=== PATIENT | female | born 1975 | race African-American/Black ===

== ENCOUNTER 2016-10-19 02:55 | Emergency (ER) | payer OTHER ==
[~2016-10-19] VITALS: Ht 175.3 cm; Wt 66.0 kg
[~2016-10-19 02:55] MED LIST: ACID1GRA2 PO; AMPH15TA2 PO; BACL20TA PO; CEPH-368 PO; CHOL500022 PO; DEXA4VIA PO; DIME240C PO; GLIM1TAB PO; HYDR-3138 PO; INSU100I28 SQ-INSULIN; IRON1TAB37 PO; LAMO1000 PO; LISI-424 PO; LORA1TAB PO; MAGN400T26 PO; METF500T4 PO; METR500T PO; ONDA-39 PO; ONDA4TAB7 PO; OXYC-229 PO; OXYC1TAB8 PO
[2016-10-19] MEDS ORDERED: OXYcodone/APAP 10/325MG TABLET ONE (03:58)
[2016-10-19] MEDS ORDERED: OXYcodone/APAP 10/325MG TABLET PO ONE (04:00)
[2016-10-19] MEDS ORDERED: INSU100I28 SQ (04:27)
[2016-10-19] MEDS ORDERED: LORA-446 PO (04:27)
[2016-10-19] MEDS ORDERED: TRAM50TA2 PO (04:27)
[2016-10-19] MEDS ORDERED: DICY10CA53 PO (04:27)
[2016-10-19] MEDS ORDERED: FAMO-79 PO (04:27)
[2016-10-19] MEDS ORDERED: [UNRECOGNIZED DRUG - CODE] IM (04:27)
[2016-10-19] MEDS ORDERED: MIRT7.5T8 PO (04:27)
[2016-10-19 05:00] LABS: HEMOGLOBIN 13.3 g/dL (11.7-16.4)
[2016-10-19 05:10] LABS: BLOOD UREA NITROGEN 21 mg/dL (7-18)
[2016-10-19] MEDS ORDERED: PHENYTOIN SODIUM 1,000 MG in SODIUM CHLORIDE 0.9% 80 ML IV ONE (05:30)
[2016-10-19] MEDS ORDERED: FILTER 0.22 MICRON IV ONE (06:00)
[2016-10-19 07:16] VITALS: BP 117/60
== END 2016-10-19 07:19 | disposition home or self-care (01) ==
LOC: ED 06:38
DX: R56.9 Unspecified convulsions (principal); E11.9 Type 2 diabetes mellitus without complications; Z88.1 Allergy status to other antibiotic agents; F17.210 Nicotine dependence, cigarettes, uncomplicated
CPT/HCPCS: 36415; 80048; 80185; 82040; 85025; 93005; 96365; 99285; J1165

== ENCOUNTER 2016-10-21 13:53 | Emergency (ER) | payer OTHER ==
[~2016-10-21] VITALS: Ht 175.3 cm; Wt 63.0 kg
[~2016-10-21 13:53] MED LIST changes: +DICY10CA53 PO; +FAMO-79 PO; +INSU100I28 SQ; +LORA-446 PO; +MIRT7.5T8 PO; +TRAM50TA2 PO; +[UNRECOGNIZED DRUG - CODE] IM
[2016-10-21 14:29] LABS: DAU SCREEN DISCLAIMER
[2016-10-21] MEDS ORDERED: SODIUM CHLORIDE FLUSH 10ML SYR IVF ONE (14:30)
[2016-10-21 14:52] LABS: BLOOD UREA NITROGEN 17 mg/dL (7-18)
[2016-10-21 14:55] LABS: HEMOGLOBIN 14.6 g/dL (11.7-16.4)
[2016-10-21 14:56] LABS: ASPARTATE AMINO TRANSFERASE 12 U/L (15-37)
[2016-10-21] MEDS ORDERED: FILTER 0.22 MICRON IV ONE (15:30)
[2016-10-21] MEDS ORDERED: PHENYTOIN SODIUM 1,000 MG in SODIUM CHLORIDE 0.9% 80 ML IV ONE (15:30)
[2016-10-21 17:26] VITALS: BP 127/77
== END 2016-10-21 17:30 | disposition home or self-care (01) ==
LOC: ED 14:35
DX: G40.409 Other generalized epilepsy and epileptic syndromes, not intractable, without status epilepticus (principal); F17.200 Nicotine dependence, unspecified, uncomplicated; E11.9 Type 2 diabetes mellitus without complications; C53.9 Malignant neoplasm of cervix uteri, unspecified; Z98.890 Other specified postprocedural states; Z87.440 Personal history of urinary (tract) infections
CPT/HCPCS: 36415; 80053; 80185; 80307; 83735; 85025; 96365; 99284; J1165

== ENCOUNTER 2016-10-24 16:01 | Emergency (ER) | payer OTHER ==
[~2016-10-24] VITALS: Ht 175.3 cm; Wt 63.9 kg
[2016-10-24] MEDS ORDERED: ONDANSETRON 2MG/ML, 2ML IVPush ONE (16:30)
[2016-10-24] MEDS ORDERED: SODIUM CHLORIDE 0.9% 1,000ML IVBOLUS ONE (16:30)
[2016-10-24] MEDS ORDERED: MORPHINE SULFATE 4 MG/ML, 1ML IVPush PRN (16:30)
[2016-10-24 16:55] LABS: ASPARTATE AMINO TRANSFERASE 12 U/L (15-37); BLOOD UREA NITROGEN 14 mg/dL (7-18)
[2016-10-24 16:56] LABS: HEMOGLOBIN 13.7 g/dL (11.7-16.4)
[2016-10-24] MEDS ORDERED: ONDANSETRON 2MG/ML, 2ML ONE (17:44)
[2016-10-24] MEDS ORDERED: MORPHINE SULFATE 4 MG/ML, 1ML ONE (17:44)
[2016-10-24 17:54] LABS: PATH.CAST-FLAG NOT PRESENT; SPERM-FLAG NOT PRESENT; SRC-FLAG NOT PRESENT; XTAL-FLAG NOT PRESENT; YLC-FLAG NOT PRESENT
[2016-10-24 19:35] VITALS: BP 136/74
== END 2016-10-24 19:38 | disposition home or self-care (01) ==
LOC: ED 18:40
DX: A04.9 Bacterial intestinal infection, unspecified (principal); K92.1 Melena; E11.9 Type 2 diabetes mellitus without complications; Z85.41 Personal history of malignant neoplasm of cervix uteri; G40.909 Epilepsy, unspecified, not intractable, without status epilepticus
CPT/HCPCS: 36415; 80053; 81001; 83605; 85025; 87324; 89055; 96361; 96374; 96375; 99284; J2405; J7030

== ENCOUNTER 2016-11-06 19:32 | Inpatient (IN) | payer OTHER ==
[~2016-11-06] VITALS: Ht 175.3 cm; Wt 61.9 kg
[2016-11-06] MEDS ORDERED: SODIUM CHLORIDE 0.9% 1,000 ML IV ONE ×2 (20:06→22:47)
[2016-11-06] MEDS ORDERED: HYDROmorphone 1 MG/ML, 1ML ONE ×2 (20:10→21:05)
[2016-11-06] MEDS ORDERED: ONDANSETRON 2MG/ML, 2ML ONE (20:10)
[2016-11-06] MEDS: HYDROmorphone 1 MG/ML, 1ML IVPush PRN ×2 (20:15→21:07)
[2016-11-06 20:21] LABS: HEMOGLOBIN 15.1 g/dL (11.7-16.4)
[2016-11-06] MEDS ORDERED: ONDANSETRON 2MG/ML, 2ML IVPush ONE (20:30)
[2016-11-06] MEDS ORDERED: SODIUM CHLORIDE FLUSH 10ML SYR IVF ONE (20:30)
[2016-11-06] MEDS ORDERED: SODIUM CHLORIDE 0.9% 1,000ML IVBOLUS ONE (20:30)
[2016-11-06 20:31] LABS: BLOOD UREA NITROGEN 16 mg/dL (7-18)
[2016-11-06 20:34] LABS: ASPARTATE AMINO TRANSFERASE 6 U/L (15-37)
[2016-11-06] MEDS ORDERED: OMNIPAQUE 350 MG/ML, 100ML BOTTLE ONE (21:23)
[2016-11-06] MEDS ORDERED: HYDROmorphone 1 MG/ML, 1ML IVPush PRN (23:00)
[2016-11-06] MEDS ORDERED: SODIUM CHLORIDE FLUSH 10ML SYR IVF PRN (23:00)
[2016-11-06] MEDS ORDERED: ONDANSETRON 2MG/ML, 2ML IVPush PRN (23:00)
[2016-11-06] MEDS ORDERED: TRAZODONE 50MG TABLET PO PRN (23:30)
[2016-11-06] MEDS ORDERED: BISACODYL 10 MG SUPP PR PRN (23:30)
[2016-11-06] MEDS ORDERED: LABETALOL 5MG/ML, 20ML IV PRN (23:30)
[2016-11-06] MEDS ORDERED: POLYETHYLENE GLYCOL 17 GM PACKET PO PRN (23:30)
[2016-11-06] MEDS ORDERED: DOCUSATE 100 MG CAPSULE PO PRN (23:30)
[2016-11-06] MEDS ORDERED: ONDANSETRON 2MG/ML, 2ML IVP PRN (23:30)
[2016-11-06] MEDS ORDERED: ACETAMINOPHEN 325 MG TABLET PO PRN (23:30)
[2016-11-07] MEDS ORDERED: LORazepam 1MG TABLET PO PRN
[2016-11-07 00:08] VITALS: BP 133/82
[2016-11-07] MEDS: MORPHINE SULFATE 4 MG/ML, 1ML IVPush PRN ×8 (00:40→23:19)
[2016-11-07] MEDS: ENOXAPARIN 40 MG/0.4 ML SQ SCH ×2 (00:41→23:59)
[2016-11-07] MEDS: FAMOTIDINE 20 MG TABLET PO SCH ×3 (00:41→20:51)
[2016-11-07] MEDS: SODIUM CHLORIDE 0.9% 1,000 ML IV SCH ×4 (00:41→18:18)
[2016-11-07 00:49] LABS: HCG UR OBC PASS
[2016-11-07] MEDS: INSULIN DETEMIR 100 UNITS/ML, PEN SQ-INSULIN SCH ×3 (01:06→23:59)
[2016-11-07 05:58] LABS: HEMOGLOBIN 11.6 g/dL (11.7-16.4)
[2016-11-07 06:23] LABS: ASPARTATE AMINO TRANSFERASE 4 U/L (15-37); BLOOD UREA NITROGEN 10 mg/dL (7-18)
[2016-11-07 06:46] VITALS: BP 126/82
[2016-11-07] MEDS ORDERED: MAGNESIUM SULFATE PMX 2GM/50ML 50 ML IV ONE (07:30)
[2016-11-07] MEDS: CHOLECALCIFEROL 1,000 UNIT TABLET PO SCH (09:28)
[2016-11-07] MEDS: MULTIVITAMINS WITH IRON TABLET PO SCH (09:29)
[2016-11-07] MEDS: BACLOFEN 10 MG TABLET PO SCH ×3 (09:29→20:51)
[2016-11-07] MEDS: LAMOTRIGINE 25 MG TABLET PO SCH ×2 (09:30→20:51)
[2016-11-07 12:52] VITALS: BP 127/83
[2016-11-07 19:43] VITALS: BP 134/85
[2016-11-08 03:50] VITALS: BP 144/94
[2016-11-08 05:29] LABS: HEMOGLOBIN 12.9 g/dL (11.7-16.4)
[2016-11-08 05:43] LABS: ASPARTATE AMINO TRANSFERASE 9 U/L (15-37); BLOOD UREA NITROGEN 6 mg/dL (7-18)
[2016-11-08] MEDS: SODIUM CHLORIDE 0.9% 1,000 ML IV SCH (08:06)
[2016-11-08] MEDS: LAMOTRIGINE 25 MG TABLET PO SCH ×2 (08:07→20:45)
[2016-11-08] MEDS: BACLOFEN 10 MG TABLET PO SCH ×3 (08:08→20:45)
[2016-11-08] MEDS: MULTIVITAMINS WITH IRON TABLET PO SCH (08:09)
[2016-11-08] MEDS: FAMOTIDINE 20 MG TABLET PO SCH ×2 (08:09→20:45)
[2016-11-08] MEDS: CHOLECALCIFEROL 1,000 UNIT TABLET PO SCH (08:10)
[2016-11-08] MEDS: MORPHINE SULFATE 4 MG/ML, 1ML IVPush PRN ×2 (08:12→16:09)
[2016-11-08 09:12] VITALS: BP 129/89
[2016-11-08] MEDS: SUCRALFATE 1 GM/10 ML UDC PO SCH ×3 (11:00→20:45)
[2016-11-08] MEDS: INSULIN DETEMIR 100 UNITS/ML, PEN SQ-INSULIN SCH ×2 (11:33→23:10)
[2016-11-08] MEDS ORDERED: REGADENOSON 0.4 MG/5 ML SYRINGE ONE (14:05)
[2016-11-08] MEDS ORDERED: SINCALIDE (KINEVAC) 5 MCG ONE (14:09)
[2016-11-08 16:24] VITALS: BP 139/92
[2016-11-08] MEDS ORDERED: CEFTRIAXONE PMX 2GM/50ML 50 ML IV SCH (17:30)
[2016-11-08] MEDS: METRONIDAZOLE PMX 500MG/100ML 100 ML IV SCH (18:49)
[2016-11-08 18:59] VITALS: BP 122/81
[2016-11-08] MEDS: HYDROmorphone 2 MG/ML, 1ML IVPush PRN ×3 (19:04→23:09)
[2016-11-09] MEDS: SUCRALFATE 1 GM/10 ML UDC PO SCH ×3 (00:32→16:19)
[2016-11-09 01:33] VITALS: BP 108/79
[2016-11-09] MEDS: SODIUM CHLORIDE 0.9% 1,000 ML IV SCH (01:54)
[2016-11-09] MEDS: METRONIDAZOLE PMX 500MG/100ML 100 ML IV SCH ×2 (01:54→11:54)
[2016-11-09 05:02] LABS: HEMOGLOBIN 13.2 g/dL (11.7-16.4)
[2016-11-09 05:15] LABS: BLOOD UREA NITROGEN 16 mg/dL (7-18)
[2016-11-09 05:19] LABS: ASPARTATE AMINO TRANSFERASE 10 U/L (15-37)
[2016-11-09] MEDS ORDERED: BUPIVACAINE/PF-EPI 0.25% 1:200K ONE ×2 (06:27→09:17)
[2016-11-09] MEDS: HYDROmorphone 2 MG/ML, 1ML IVPush PRN (06:30)
[2016-11-09 08:10] VITALS: BP 109/76
[2016-11-09] MEDS ORDERED: FENTANYL PF 250 MCG/5ML ONE (09:05)
[2016-11-09] MEDS ORDERED: MIDAZOLAM 1 MG/ML, 2ML ONE (09:06)
[2016-11-09] MEDS ORDERED: GLYCOPYRROLATE 0.2MG/1ML ONE (09:31)
[2016-11-09] MEDS ORDERED: SUCCINYLCHOLINE 20 MG/ML, 10ML ONE (09:31)
[2016-11-09] MEDS ORDERED: NEOSTIGMINE 1 MG/ML, 10ML ONE (09:31)
[2016-11-09] MEDS ORDERED: ONDANSETRON 2MG/ML, 2ML ONE (09:31)
[2016-11-09] MEDS ORDERED: ROCURONIUM 10 MG/ML ONE (09:31)
[2016-11-09] MEDS ORDERED: PROPOFOL 10 MG/ML, 20ML ONE (09:31)
[2016-11-09] MEDS ORDERED: OXYcodone 5 MG/5 ML ORAL.SOL UDC PO PRN (10:00)
[2016-11-09] MEDS ORDERED: MEPERIDINE/PF 25MG/0.5ML IVPush PRN (10:00)
[2016-11-09] MEDS ORDERED: METOPROLOL 1 MG/ML, 5ML IV PRN (10:00)
[2016-11-09] MEDS ORDERED: hydrALAzine 20 MG/ML, 1ML IV PRN (10:00)
[2016-11-09] MEDS ORDERED: ALBUTEROL SULFATE 2.5 MG/3 ML NPPB PRN (10:00)
[2016-11-09] MEDS ORDERED: EPHEDRINE 50 MG/ML, 1ML IVPush PRN (10:00)
[2016-11-09] MEDS ORDERED: LABETALOL 5MG/ML, 20ML IV PRN (10:00)
[2016-11-09] MEDS ORDERED: PROMETHAZINE 25 MG/ML, 1ML IV PRN (10:00)
[2016-11-09] MEDS ORDERED: MIDAZOLAM 1 MG/ML, 2ML IV PRN (10:00)
[2016-11-09] MEDS ORDERED: FENTANYL PF 100 MCG/2ML IV PRN (10:00)
[2016-11-09] MEDS ORDERED: ONDANSETRON 2MG/ML, 2ML IVPush PRN (10:00)
[2016-11-09] MEDS ORDERED: HYDROmorphone 1 MG/ML, 1ML IV PRN (10:00)
[2016-11-09] MEDS ORDERED: ACETAMINOPHEN 325 MG TABLET PO PRN (10:00)
[2016-11-09] MEDS ORDERED: ACETAMINOPHEN 650 MG/20.3 ML UDC ONE (10:51)
[2016-11-09] MEDS ORDERED: FENTANYL PF 100 MCG/2ML ONE (10:51)
[2016-11-09] MEDS ORDERED: OXYcodone 5 MG/5 ML ORAL.SOL UDC ONE (10:51)
[2016-11-09] MEDS: INSULIN DETEMIR 100 UNITS/ML, PEN SQ-INSULIN SCH (12:20)
[2016-11-09] MEDS ORDERED: HYDROcodone/APAP 5/325 TABLET PO PRN (15:00)
[2016-11-09] MEDS: BACLOFEN 10 MG TABLET PO SCH ×2 (15:11→15:55)
[2016-11-09] MEDS: MULTIVITAMINS WITH IRON TABLET PO SCH (15:11)
[2016-11-09] MEDS: FAMOTIDINE 20 MG TABLET PO SCH (15:11)
[2016-11-09] MEDS: CHOLECALCIFEROL 1,000 UNIT TABLET PO SCH (15:11)
[2016-11-09] MEDS: LAMOTRIGINE 25 MG TABLET PO SCH (15:12)
[2016-11-09 15:25] VITALS: BP 132/78
[2016-11-09] MEDS ORDERED: ONDA4TAB13 SL (16:12)
[2016-11-09] MEDS ORDERED: HYDR-3138 PO (16:13)
[2016-11-09 16:30] VITALS: BP 113/73
== END 2016-11-09 17:46 | disposition home or self-care (01) | DRG 418 ==
LOC: ED 21:09 → EDIP 22:47 → 4NOR 23:45
PROVIDERS: ADMIT Internal Medicine; ATTEND Internal Medicine
PROC: 0FT44ZZ Resection of Gallbladder, Percutaneous Endoscopic Approach (ICD-10-PCS; principal; 2016-11-06)
PROC: 0T9B70Z Drainage of Bladder with Drainage Device, Via Natural or Artificial Opening (ICD-10-PCS; 2016-11-06)
DX: K82.8 Other specified diseases of gallbladder (principal); E87.1 Hypo-osmolality and hyponatremia; E87.2 Acidosis; R65.10 Systemic inflammatory response syndrome (SIRS) of non-infectious origin without acute organ dysfunction; E11.65 Type 2 diabetes mellitus with hyperglycemia; E83.52 Hypercalcemia; D72.828 Other elevated white blood cell count; G35 Multiple sclerosis; F17.210 Nicotine dependence, cigarettes, uncomplicated; G40.909 Epilepsy, unspecified, not intractable, without status epilepticus; Z82.49 Family history of ischemic heart disease and other diseases of the circulatory system; Z85.41 Personal history of malignant neoplasm of cervix uteri; Z83.3 Family history of diabetes mellitus; Z86.19 Personal history of other infectious and parasitic diseases; Z88.0 Allergy status to penicillin; Z80.9 Family history of malignant neoplasm, unspecified
CPT/HCPCS: 36415; 74177; 78227; 80053; 81001; 81025; 82010; 82962; 83036; 83605; 83690; 83735; 84439; 84443; 85025; 85610; 85730; 87040; 88304; 93005; 96361; 96374; 96375; 96376; J0696; J1170; J1650; J2250; J2405; J2704; J2710; J2785; J3010; J3490; Q9967; A9537; C9898; J0330; J1815; J2805; J3475; J7030

== ENCOUNTER 2016-11-24 23:24 | Inpatient (IN) | payer OTHER ==
[~2016-11-24] VITALS: Ht 175.3 cm; Wt 63.0 kg
[~2016-11-24 23:24] MED LIST changes: +ONDA4TAB13 SL
[2016-11-24] MEDS ORDERED: OMNIPAQUE 350 MG/ML, 100ML BOTTLE ONE (23:50)
[2016-11-25] MEDS ORDERED: SODIUM CHLORIDE 0.9% 1,000ML IVBOLUS ONE
[2016-11-25] MEDS ORDERED: ONDANSETRON 2MG/ML, 2ML IVPush ONE
[2016-11-25] MEDS ORDERED: SODIUM CHLORIDE FLUSH 10ML SYR IVF ONE
[2016-11-25] MEDS ORDERED: ONDANSETRON 2MG/ML, 2ML ONE (00:14)
[2016-11-25] MEDS ORDERED: MORPHINE SULFATE 4 MG/ML, 1ML ONE ×2 (00:14→01:57)
[2016-11-25] MEDS: MORPHINE SULFATE 4 MG/ML, 1ML IVPush PRN ×7 (00:20→22:03)
[2016-11-25 00:35] LABS: ASPARTATE AMINO TRANSFERASE 14 U/L (15-37); BLOOD UREA NITROGEN 17 mg/dL (7-18)
[2016-11-25 02:20] VITALS: BP 119/81
[2016-11-25] MEDS ORDERED: DOCUSATE 100 MG CAPSULE PO PRN (02:30)
[2016-11-25] MEDS ORDERED: POLYETHYLENE GLYCOL 17 GM PACKET PO PRN (02:30)
[2016-11-25] MEDS ORDERED: BISACODYL 10 MG SUPP PR PRN (02:30)
[2016-11-25] MEDS ORDERED: ACETAMINOPHEN 325 MG TABLET PO PRN (02:30)
[2016-11-25] MEDS: HYDROcodone/APAP 5/325 TABLET PO PRN (03:19)
[2016-11-25] MEDS: ENOXAPARIN 40 MG/0.4 ML SQ SCH (03:19)
[2016-11-25] MEDS: NS + 20MEQ KCL 1,000 ML IV SCH ×2 (03:59→11:16)
[2016-11-25 08:10] VITALS: BP 120/82
[2016-11-25] MEDS: LAMOTRIGINE 25 MG TABLET PO SCH ×2 (08:22→22:03)
[2016-11-25] MEDS: BACLOFEN 10 MG TABLET PO SCH ×3 (08:22→22:04)
[2016-11-25] MEDS: INSULIN REGULAR 100 UNITS/ML, 3ML VIAL SQ-INSULIN SCH ×4 (11:00→21:00)
[2016-11-25 15:42] VITALS: BP 104/71
[2016-11-25] MEDS: ONDANSETRON 2MG/ML, 2ML IVP PRN (18:43)
[2016-11-25 19:17] VITALS: BP 112/79
[2016-11-25] MEDS: INSULIN DETEMIR 100 UNITS/ML, PEN SQ-INSULIN SCH (22:40)
[2016-11-26 02:28] VITALS: BP 130/87
[2016-11-26 03:44] LABS: ASPARTATE AMINO TRANSFERASE 115 U/L (15-37); BLOOD UREA NITROGEN 18 mg/dL (7-18)
[2016-11-26] MEDS: ENOXAPARIN 40 MG/0.4 ML SQ SCH (06:42)
[2016-11-26] MEDS: MORPHINE SULFATE 4 MG/ML, 1ML IVPush PRN ×5 (06:43→21:31)
[2016-11-26 06:51] VITALS: BP 129/79
[2016-11-26] MEDS: INSULIN REGULAR 100 UNITS/ML, 3ML VIAL SQ-INSULIN SCH ×4 (07:00→20:49)
[2016-11-26] MEDS ORDERED: MAGNESIUM SULFATE PMX 4GM/100M 100 ML IV ONE (08:00)
[2016-11-26] MEDS: BACLOFEN 10 MG TABLET PO SCH ×3 (08:15→20:48)
[2016-11-26] MEDS: LAMOTRIGINE 25 MG TABLET PO SCH ×2 (08:15→20:48)
[2016-11-26 14:41] VITALS: BP 134/89
[2016-11-26] MEDS: ONDANSETRON 2MG/ML, 2ML IVP PRN (14:54)
[2016-11-26] MEDS: FAMOTIDINE 20 MG/2 ML IVPush SCH (20:47)
[2016-11-26 20:56] VITALS: BP 129/91
[2016-11-26] MEDS: INSULIN DETEMIR 100 UNITS/ML, PEN SQ-INSULIN SCH (21:00)
[2016-11-26] MEDS: METOCLOPRAMIDE 5 MG/ML, 2ML IV SCH (21:32)
[2016-11-26] MEDS: PIPERACILLIN/TAZO/PMX 3.375GM 50 ML IV SCH (21:32)
[2016-11-27] MEDS: KETOROLAC 30 MG/1 ML IV PRN (00:56)
[2016-11-27 00:59] VITALS: BP 136/84
[2016-11-27] MEDS: PIPERACILLIN/TAZO/PMX 3.375GM 50 ML IV SCH ×2 (02:53→09:00)
[2016-11-27] MEDS: INSULIN REGULAR 100 UNITS/ML, 3ML VIAL SQ-INSULIN SCH ×4 (02:53→20:50)
[2016-11-27] MEDS: METOCLOPRAMIDE 5 MG/ML, 2ML IV SCH ×4 (02:53→20:38)
[2016-11-27] MEDS: MORPHINE SULFATE 4 MG/ML, 1ML IVPush PRN ×4 (05:35→22:49)
[2016-11-27 05:42] LABS: ASPARTATE AMINO TRANSFERASE 18 U/L (15-37); BLOOD UREA NITROGEN 29 mg/dL (7-18)
[2016-11-27] MEDS: ENOXAPARIN 40 MG/0.4 ML SQ SCH (07:30)
[2016-11-27] MEDS ORDERED: BUPIVACAINE/PF-EPI 0.25% 1:200K ONE (07:44)
[2016-11-27 08:00] VITALS: BP 129/91
[2016-11-27] MEDS: BACLOFEN 10 MG TABLET PO SCH ×3 (09:00→20:47)
[2016-11-27] MEDS: FAMOTIDINE 20 MG/2 ML IVPush SCH ×2 (09:00→20:39)
[2016-11-27] MEDS: LAMOTRIGINE 25 MG TABLET PO SCH ×2 (09:00→20:47)
[2016-11-27] MEDS ORDERED: PROPOFOL 10 MG/ML, 20ML ONE (10:21)
[2016-11-27] MEDS ORDERED: SUCCINYLCHOLINE 20 MG/ML, 10ML ONE (10:21)
[2016-11-27] MEDS ORDERED: CEFAZOLIN 1,000 MG ONE (10:21)
[2016-11-27] MEDS ORDERED: ONDANSETRON 2MG/ML, 2ML ONE (10:21)
[2016-11-27] MEDS ORDERED: ROCURONIUM 10 MG/ML ONE (10:21)
[2016-11-27] MEDS ORDERED: ACETAMINOPHEN 325 MG TABLET PO PRN (11:00)
[2016-11-27] MEDS ORDERED: LABETALOL 5MG/ML, 20ML IV PRN (11:00)
[2016-11-27] MEDS ORDERED: FENTANYL PF 100 MCG/2ML IV PRN (11:00)
[2016-11-27] MEDS ORDERED: hydrALAzine 20 MG/ML, 1ML IV PRN (11:00)
[2016-11-27] MEDS ORDERED: METOCLOPRAMIDE 5 MG/ML, 2ML IV PRN (11:00)
[2016-11-27] MEDS ORDERED: OXYcodone 5 MG/5 ML ORAL.SOL UDC PO PRN (11:00)
[2016-11-27] MEDS ORDERED: ONDANSETRON 2MG/ML, 2ML IVPush PRN (11:00)
[2016-11-27] MEDS ORDERED: HYDROmorphone 2 MG/ML, 1ML ONE (12:33)
[2016-11-27] MEDS ORDERED: MEPERIDINE/PF 25MG/0.5ML ONE (12:34)
[2016-11-27] MEDS: HYDROmorphone 1 MG/ML, 1ML IV PRN ×4 (12:46→13:46)
[2016-11-27] MEDS ORDERED: MEPERIDINE/PF 25MG/0.5ML IVPush PRN (13:00)
[2016-11-27 15:06] VITALS: BP 135/91
[2016-11-27] MEDS: LACTATED RINGERS 1,000 ML IV SCH (17:30)
[2016-11-27 20:26] VITALS: BP 122/87
[2016-11-27] MEDS: INSULIN DETEMIR 100 UNITS/ML, PEN SQ-INSULIN SCH (20:50)
[2016-11-27] MEDS ORDERED: SODIUM CHLORIDE 0.9%, 500ML IVBOLUS ONE (22:00)
[2016-11-28 00:17] VITALS: BP 123/88
[2016-11-28] MEDS: MORPHINE SULFATE 4 MG/ML, 1ML IVPush PRN ×2 (02:32→06:30)
[2016-11-28] MEDS: METOCLOPRAMIDE 5 MG/ML, 2ML IV SCH ×4 (02:37→21:54)
[2016-11-28] MEDS: INSULIN REGULAR 100 UNITS/ML, 3ML VIAL SQ-INSULIN SCH ×4 (02:40→21:56)
[2016-11-28 02:58] VITALS: BP 122/84
[2016-11-28 08:02] VITALS: BP 122/76
[2016-11-28] MEDS: FAMOTIDINE 20 MG/2 ML IVPush SCH ×2 (08:13→21:54)
[2016-11-28] MEDS: ENOXAPARIN 40 MG/0.4 ML SQ SCH (08:13)
[2016-11-28] MEDS: LACTATED RINGERS 1,000 ML IV SCH ×2 (08:14→17:31)
[2016-11-28 08:42] LABS: ASPARTATE AMINO TRANSFERASE 8 U/L (15-37); BLOOD UREA NITROGEN 19 mg/dL (7-18)
[2016-11-28 09:46] LABS: DIFF TOTAL CELLS COUNTED 200 CELL DIFF; VERIFY COUNTS? YES
[2016-11-28 09:55] LABS: ANISOCYTOSIS 1+; POLYCHROMASIA 1+
[2016-11-28] MEDS: HYDROcodone/APAP 5/325 TABLET PO PRN ×2 (10:41→15:04)
[2016-11-28] MEDS: LAMOTRIGINE 25 MG TABLET PO SCH ×2 (10:41→23:06)
[2016-11-28] MEDS: BACLOFEN 10 MG TABLET PO SCH ×3 (10:42→23:06)
[2016-11-28] MEDS: KETOROLAC 30 MG/1 ML IV PRN (11:29)
[2016-11-28 13:05] VITALS: BP 116/78
[2016-11-28 20:00] VITALS: BP 109/75
[2016-11-28] MEDS: INSULIN DETEMIR 100 UNITS/ML, PEN SQ-INSULIN SCH (21:55)
[2016-11-28] MEDS: ONDANSETRON 2MG/ML, 2ML IVP PRN (22:14)
[2016-11-29 02:30] VITALS: BP 129/88
[2016-11-29] MEDS: LACTATED RINGERS 1,000 ML IV SCH ×3 (02:57→23:14)
[2016-11-29] MEDS: METOCLOPRAMIDE 5 MG/ML, 2ML IV SCH ×4 (02:58→21:52)
[2016-11-29 05:41] LABS: ASPARTATE AMINO TRANSFERASE 7 U/L (15-37); BLOOD UREA NITROGEN 21 mg/dL (7-18)
[2016-11-29] MEDS: ENOXAPARIN 40 MG/0.4 ML SQ SCH (06:48)
[2016-11-29] MEDS: ONDANSETRON 2MG/ML, 2ML IVP PRN ×2 (06:48→21:23)
[2016-11-29] MEDS: KETOROLAC 30 MG/1 ML IV PRN ×3 (07:21→21:51)
[2016-11-29] MEDS: morphine SULFATE 10 MG/ML, 1ML IVPush PRN ×5 (07:22→21:51)
[2016-11-29] MEDS: INSULIN REGULAR 100 UNITS/ML, 3ML VIAL SQ-INSULIN SCH ×4 (07:44→23:04)
[2016-11-29 08:41] VITALS: BP 120/78
[2016-11-29] MEDS: FAMOTIDINE 20 MG/2 ML IVPush SCH (09:54)
[2016-11-29] MEDS: PROCHLORPERAZINE 5 MG/ML, 2ML IV PRN (09:54)
[2016-11-29] MEDS: LAMOTRIGINE 25 MG TABLET PO SCH ×2 (12:54→23:13)
[2016-11-29] MEDS: BACLOFEN 10 MG TABLET PO SCH ×3 (12:54→21:51)
[2016-11-29 13:23] VITALS: BP 123/81
[2016-11-29] MEDS: POTASSIUM CHLORIDE 20 MEQ TAB.ER.PRT PO SCH (15:54)
[2016-11-29 20:03] VITALS: BP 126/83
[2016-11-29] MEDS: FAMOTIDINE 20 MG TABLET PO SCH (23:13)
[2016-11-29] MEDS: INSULIN DETEMIR 100 UNITS/ML, PEN SQ-INSULIN SCH (23:13)
[2016-11-30 02:35] VITALS: BP 124/79
[2016-11-30] MEDS: morphine SULFATE 10 MG/ML, 1ML IVPush PRN ×5 (03:08→21:30)
[2016-11-30] MEDS: METOCLOPRAMIDE 5 MG/ML, 2ML IV SCH ×3 (03:08→17:54)
[2016-11-30] MEDS: KETOROLAC 30 MG/1 ML IV PRN ×3 (05:05→21:36)
[2016-11-30 05:46] LABS: BLOOD UREA NITROGEN 15 mg/dL (7-18)
[2016-11-30] MEDS: INSULIN REGULAR 100 UNITS/ML, 3ML VIAL SQ-INSULIN SCH ×4 (06:35→21:50)
[2016-11-30] MEDS ORDERED: MAGNESIUM SULFATE PMX 2GM/50ML 50 ML IV ONE (07:30)
[2016-11-30 07:31] VITALS: BP 109/71
[2016-11-30] MEDS: POTASSIUM CHLORIDE 20 MEQ TAB.ER.PRT PO SCH ×2 (08:19→17:54)
[2016-11-30] MEDS: ENOXAPARIN 40 MG/0.4 ML SQ SCH (08:19)
[2016-11-30] MEDS: LAMOTRIGINE 25 MG TABLET PO SCH ×2 (08:19→21:00)
[2016-11-30] MEDS: BACLOFEN 10 MG TABLET PO SCH ×3 (08:20→21:00)
[2016-11-30] MEDS: FAMOTIDINE 20 MG TABLET PO SCH ×2 (08:20→21:00)
[2016-11-30 09:04] LABS: DIFF TOTAL CELLS COUNTED 100 CELL DIFF
[2016-11-30 09:06] LABS: VERIFY COUNTS? YES
[2016-11-30] MEDS ORDERED: MORPHINE SULFATE 4 MG/ML, 1ML ONE ×2 (10:39→15:40)
[2016-11-30] MEDS: LACTATED RINGERS 1,000 ML IV SCH (11:06)
[2016-11-30] MEDS: ONDANSETRON 2MG/ML, 2ML IVP PRN ×2 (13:18→21:30)
[2016-11-30 13:45] LABS: ASPARTATE AMINO TRANSFERASE 10 U/L (15-37); BLOOD UREA NITROGEN 14 mg/dL (7-18)
[2016-11-30 15:25] VITALS: BP 158/92
[2016-11-30] MEDS: PROCHLORPERAZINE 5 MG/ML, 2ML IV PRN ×2 (16:14→23:52)
[2016-11-30 19:22] VITALS: BP 129/88
[2016-11-30] MEDS: INSULIN DETEMIR 100 UNITS/ML, PEN SQ-INSULIN SCH (21:50)
[2016-12-01] MEDS: METOCLOPRAMIDE 5 MG/ML, 2ML IV SCH ×4 (01:32→18:00)
[2016-12-01] MEDS: morphine SULFATE 10 MG/ML, 1ML IVPush PRN ×2 (01:32→12:03)
[2016-12-01 02:38] VITALS: BP 131/66
[2016-12-01] MEDS: ONDANSETRON 2MG/ML, 2ML IVPush PRN ×3 (03:46→20:28)
[2016-12-01 05:28] LABS: BLOOD UREA NITROGEN 20 mg/dL (7-18)
[2016-12-01] MEDS: LACTATED RINGERS 1,000 ML IV SCH (06:19)
[2016-12-01 06:55] LABS: DIFF TOTAL CELLS COUNTED 200 CELL DIFF; VERIFY COUNTS? YES
[2016-12-01] MEDS: INSULIN REGULAR 100 UNITS/ML, 3ML VIAL SQ-INSULIN SCH ×4 (07:00→21:18)
[2016-12-01 07:01] LABS: ANISOCYTOSIS 1+
[2016-12-01 07:44] VITALS: BP 132/91
[2016-12-01] MEDS ORDERED: POTASSIUM CHLORIDE 40 MEQ in SODIUM CHLORIDE 0.9% 500 ML IV ONE (08:00)
[2016-12-01] MEDS: LAMOTRIGINE 25 MG TABLET PO SCH ×2 (09:00→21:00)
[2016-12-01] MEDS: FAMOTIDINE 20 MG TABLET PO SCH ×2 (09:00→21:00)
[2016-12-01] MEDS: BACLOFEN 10 MG TABLET PO SCH ×3 (09:00→21:00)
[2016-12-01] MEDS ORDERED: MORPHINE SULFATE 4 MG/ML, 1ML ONE (11:39)
[2016-12-01 13:28] VITALS: BP 123/83
[2016-12-01] MEDS ORDERED: FAMOTIDINE 20 MG/2 ML IVPush ONE (15:00)
[2016-12-01 19:05] VITALS: BP 134/88
[2016-12-01] MEDS: KETOROLAC 30 MG/1 ML IV PRN (20:46)
[2016-12-01] MEDS: INSULIN DETEMIR 100 UNITS/ML, PEN SQ-INSULIN SCH (21:17)
[2016-12-02 03:09] VITALS: BP 129/87
[2016-12-02] MEDS: METOCLOPRAMIDE 5 MG/ML, 2ML IV SCH ×4 (05:33→18:00)
[2016-12-02 05:38] LABS: BLOOD UREA NITROGEN 15 mg/dL (7-18)
[2016-12-02] MEDS ORDERED: POTASSIUM CHLORIDE 40 MEQ in SODIUM CHLORIDE 0.9% 100 ML IV ONE ×2 (06:00→20:30)
[2016-12-02] MEDS: INSULIN REGULAR 100 UNITS/ML, 3ML VIAL SQ-INSULIN SCH ×4 (07:00→20:43)
[2016-12-02 07:36] LABS: DIFF TOTAL CELLS COUNTED 100 CELL DIFF
[2016-12-02 07:39] LABS: VERIFY COUNTS? YES
[2016-12-02 08:14] VITALS: BP 125/82
[2016-12-02] MEDS ORDERED: MAGNESIUM SULFATE 2 GM in SODIUM CHLORIDE 0.9% 50 ML IV ONE (08:30)
[2016-12-02] MEDS: BACLOFEN 10 MG TABLET PO SCH ×3 (09:00→22:59)
[2016-12-02] MEDS: LAMOTRIGINE 25 MG TABLET PO SCH ×2 (09:00→22:59)
[2016-12-02] MEDS: FAMOTIDINE 20 MG TABLET PO SCH ×2 (09:00→22:59)
[2016-12-02] MEDS: LACTATED RINGERS 1,000 ML IV SCH ×2 (09:30→23:05)
[2016-12-02] MEDS: ONDANSETRON 2MG/ML, 2ML IVPush PRN ×3 (09:31→22:59)
[2016-12-02] MEDS ORDERED: MORPHINE SULFATE 4 MG/ML, 1ML ONE (11:23)
[2016-12-02] MEDS ORDERED: MAGNESIUM SULFATE PMX 2GM/50ML 50 ML IV ONE (11:30)
[2016-12-02] MEDS ORDERED: POTASSIUM CHLORIDE 40 MEQ in SODIUM CHLORIDE 0.9% 500 ML IV ONE (13:00)
[2016-12-02 14:45] VITALS: BP 126/85
[2016-12-02] MEDS: METRONIDAZOLE PMX 500MG/100ML 100 ML IV SCH ×2 (15:21→23:00)
[2016-12-02] MEDS ORDERED: HYDROmorphone 1 MG/ML, 1ML ONE (18:10)
[2016-12-02] MEDS: HYDROmorphone 1 MG/ML, 1ML IV PRN ×2 (18:12→22:58)
[2016-12-02 18:57] LABS: BLOOD UREA NITROGEN 14 mg/dL (7-18)
[2016-12-02 19:18] VITALS: BP 143/88
[2016-12-02] MEDS ORDERED: POTASSIUM CHLORIDE PMX 100 ML IV ONE (20:30)
[2016-12-02] MEDS: INSULIN DETEMIR 100 UNITS/ML, PEN SQ-INSULIN SCH (21:03)
[2016-12-03 01:05] VITALS: BP 125/84
[2016-12-03] MEDS: HYDROmorphone 1 MG/ML, 1ML IV PRN ×4 (02:47→21:03)
[2016-12-03] MEDS: ONDANSETRON 2MG/ML, 2ML IVPush PRN ×3 (04:59→21:03)
[2016-12-03 05:45] LABS: BLOOD UREA NITROGEN 14 mg/dL (7-18)
[2016-12-03] MEDS: INSULIN REGULAR 100 UNITS/ML, 3ML VIAL SQ-INSULIN SCH ×4 (07:00→20:53)
[2016-12-03] MEDS: METRONIDAZOLE PMX 500MG/100ML 100 ML IV SCH ×3 (07:45→23:31)
[2016-12-03 09:01] VITALS: BP 131/83
[2016-12-03] MEDS: FAMOTIDINE 20 MG TABLET PO SCH ×2 (09:44→21:00)
[2016-12-03] MEDS: BACLOFEN 10 MG TABLET PO SCH ×3 (09:44→21:00)
[2016-12-03] MEDS: LAMOTRIGINE 25 MG TABLET PO SCH ×2 (09:44→21:00)
[2016-12-03 10:06] LABS: BLOOD UREA NITROGEN 16 mg/dL (7-18)
[2016-12-03 10:33] LABS: DIFF TOTAL CELLS COUNTED 100 CELL DIFF
[2016-12-03 10:37] LABS: VERIFY COUNTS? YES
[2016-12-03] MEDS ORDERED: POTASSIUM CHLORIDE 40 MEQ in SODIUM CHLORIDE 0.9% 100 ML IV ONE ×2 (12:30→14:21)
[2016-12-03 15:48] VITALS: BP 124/85
[2016-12-03 16:14] LABS: BLOOD UREA NITROGEN 17 mg/dL (7-18)
[2016-12-03 19:15] VITALS: BP 120/77
[2016-12-03] MEDS: INSULIN DETEMIR 100 UNITS/ML, PEN SQ-INSULIN SCH (21:00)
[2016-12-04] MEDS ORDERED: D5%-0.9% NACL 1,000 ML IV SCH
[2016-12-04] MEDS: HYDROmorphone 1 MG/ML, 1ML IV PRN ×6 (01:17→23:12)
[2016-12-04 01:32] VITALS: BP 119/82
[2016-12-04] MEDS: INSULIN REGULAR 100 UNITS/ML, 3ML VIAL SQ-INSULIN SCH ×4 (04:04→21:09)
[2016-12-04 04:22] LABS: BLOOD UREA NITROGEN 17 mg/dL (7-18)
[2016-12-04 04:39] LABS: DIFF TOTAL CELLS COUNTED 100 CELL DIFF
[2016-12-04 06:10] LABS: VERIFY COUNTS? YES
[2016-12-04 07:03] VITALS: BP 113/78
[2016-12-04] MEDS: METRONIDAZOLE PMX 500MG/100ML 100 ML IV SCH ×3 (07:22→23:12)
[2016-12-04] MEDS ORDERED: FAMOTIDINE 20 MG/2 ML IVPush SCH (09:00)
[2016-12-04] MEDS: LAMOTRIGINE 25 MG TABLET PO SCH ×2 (09:00→21:08)
[2016-12-04] MEDS: BACLOFEN 10 MG TABLET PO SCH ×3 (09:00→21:08)
[2016-12-04] MEDS: ONDANSETRON 2MG/ML, 2ML IVPush PRN ×2 (09:45→15:48)
[2016-12-04] MEDS ORDERED: INSULIN REGULAR 100 UNITS/ML, 3ML VIAL SQ-INSULIN SCH (10:00)
[2016-12-04] MEDS ORDERED: TPN PER PHARMACY MC PRN (11:30)
[2016-12-04 14:05] VITALS: BP 131/85
[2016-12-04] MEDS ORDERED: DEXTROSE 10% 500 ML IV PRN (17:00)
[2016-12-04] MEDS ORDERED: FAT EMULSIONS IV SCH (17:00)
[2016-12-04] MEDS ORDERED: DEXTROSE 50%, 50ML SYRINGE IVPush PRN (17:00)
[2016-12-04] MEDS ORDERED: DEXTROSE 70% IV SCH (17:00)
[2016-12-04] MEDS ORDERED: [UNRECOGNIZED DRUG - OTHER] IV SCH (17:00)
[2016-12-04] MEDS ORDERED: AMINO ACID 10% IV SCH (17:00)
[2016-12-04 20:06] VITALS: BP 126/81
[2016-12-04] MEDS: DOXYCYCLINE 100MG TABLET PO SCH (21:08)
[2016-12-04] MEDS: INSULIN DETEMIR 100 UNITS/ML, PEN SQ-INSULIN SCH (21:09)
[2016-12-05 03:03] VITALS: BP 122/80
[2016-12-05] MEDS: HYDROmorphone 1 MG/ML, 1ML IV PRN ×3 (03:05→11:35)
[2016-12-05 04:37] LABS: ASPARTATE AMINO TRANSFERASE 10 U/L (15-37); BLOOD UREA NITROGEN 11 mg/dL (7-18)
[2016-12-05] MEDS: METRONIDAZOLE PMX 500MG/100ML 100 ML IV SCH ×3 (07:32→23:10)
[2016-12-05 08:00] VITALS: BP 130/79
[2016-12-05] MEDS: BACLOFEN 10 MG TABLET PO SCH ×5 (09:00→21:04)
[2016-12-05] MEDS: DOXYCYCLINE 100MG TABLET PO SCH ×2 (09:12→21:04)
[2016-12-05] MEDS: LAMOTRIGINE 25 MG TABLET PO SCH ×2 (09:13→21:05)
[2016-12-05] MEDS: INSULIN REGULAR 100 UNITS/ML, 3ML VIAL SQ-INSULIN SCH ×4 (09:14→21:06)
[2016-12-05] MEDS ORDERED: POTASSIUM CHLORIDE 40 MEQ in SODIUM CHLORIDE 0.9% 100 ML IV ONE (12:00)
[2016-12-05] MEDS ORDERED: POTASSIUM CHLORIDE 20 MEQ TAB.ER.PRT PO ONE (13:30)
[2016-12-05 14:08] VITALS: BP 128/85
[2016-12-05] MEDS: HYDROmorphone 2MG TABLET PO PRN (15:56)
[2016-12-05] MEDS ORDERED: DEXTROSE 70% IV SCH (17:00)
[2016-12-05] MEDS ORDERED: FAT EMULSIONS IV SCH (17:00)
[2016-12-05] MEDS ORDERED: AMINO ACID 10% IV SCH (17:00)
[2016-12-05] MEDS ORDERED: [UNRECOGNIZED DRUG - OTHER] IV SCH (17:00)
[2016-12-05] MEDS: ENOXAPARIN 40 MG/0.4 ML SQ SCH (17:58)
[2016-12-05] MEDS: FILTER, DISP 1.2 MICRON FOR TPN/PVN IV PRN (17:59)
[2016-12-05 20:01] VITALS: BP 134/90
[2016-12-05] MEDS: ONDANSETRON 2MG/ML, 2ML IVPush PRN (21:04)
[2016-12-05] MEDS: HYDROcodone/APAP 5/325 TABLET PO PRN (21:05)
[2016-12-05] MEDS: INSULIN DETEMIR 100 UNITS/ML, PEN SQ-INSULIN SCH (21:06)
[2016-12-06] MEDS: HYDROcodone/APAP 5/325 TABLET PO PRN ×3 (03:49→17:21)
[2016-12-06] MEDS: HYDROmorphone 2MG TABLET PO PRN ×2 (03:49→20:17)
[2016-12-06 04:00] VITALS: BP 120/78
[2016-12-06 05:01] LABS: BLOOD UREA NITROGEN 6 mg/dL (7-18)
[2016-12-06 07:25] VITALS: BP 115/77
[2016-12-06] MEDS: INSULIN REGULAR 100 UNITS/ML, 3ML VIAL SQ-INSULIN SCH ×4 (08:08→21:00)
[2016-12-06] MEDS: METRONIDAZOLE PMX 500MG/100ML 100 ML IV SCH ×3 (08:08→23:30)
[2016-12-06] MEDS: BACLOFEN 10 MG TABLET PO SCH ×3 (09:00→21:00)
[2016-12-06] MEDS: LAMOTRIGINE 25 MG TABLET PO SCH ×2 (09:00→21:00)
[2016-12-06] MEDS: DOXYCYCLINE 100MG TABLET PO SCH ×2 (09:56→21:37)
[2016-12-06] MEDS ORDERED: HYDROmorphone 1 MG/ML, 1ML IV ONE (10:00)
[2016-12-06] MEDS ORDERED: MAGNESIUM SULFATE PMX 2GM/50ML 50 ML IV ONE (13:00)
[2016-12-06 13:31] VITALS: BP 122/74
[2016-12-06] MEDS: CEFDINIR 300 MG CAPSULE PO SCH ×2 (15:24→21:49)
[2016-12-06] MEDS ORDERED: FAT EMULSIONS IV SCH (17:00)
[2016-12-06] MEDS ORDERED: AMINO ACID 10% IV SCH (17:00)
[2016-12-06] MEDS ORDERED: DEXTROSE 70% IV SCH (17:00)
[2016-12-06] MEDS ORDERED: [UNRECOGNIZED DRUG - OTHER] IV SCH (17:00)
[2016-12-06] MEDS: ENOXAPARIN 40 MG/0.4 ML SQ SCH (17:22)
[2016-12-06] MEDS: FILTER, DISP 1.2 MICRON FOR TPN/PVN IV PRN (17:22)
[2016-12-06 19:40] VITALS: BP 127/84
[2016-12-06] MEDS: INSULIN DETEMIR 100 UNITS/ML, PEN SQ-INSULIN SCH (21:46)
[2016-12-07 02:15] VITALS: BP 119/80
[2016-12-07 05:16] LABS: BLOOD UREA NITROGEN 5 mg/dL (7-18)
[2016-12-07 05:51] LABS: DIFF TOTAL CELLS COUNTED 100 CELL DIFF
[2016-12-07 05:55] LABS: VERIFY COUNTS? YES
[2016-12-07 05:57] LABS: ANISOCYTOSIS 1+
[2016-12-07] MEDS: HYDROmorphone 2MG TABLET PO PRN ×3 (06:42→20:53)
[2016-12-07] MEDS: INSULIN REGULAR 100 UNITS/ML, 3ML VIAL SQ-INSULIN SCH ×4 (07:00→20:53)
[2016-12-07 08:00] VITALS: BP 122/76
[2016-12-07] MEDS: LAMOTRIGINE 25 MG TABLET PO SCH ×2 (08:03→20:57)
[2016-12-07] MEDS: BACLOFEN 10 MG TABLET PO SCH ×3 (08:03→20:57)
[2016-12-07] MEDS: METRONIDAZOLE PMX 500MG/100ML 100 ML IV SCH ×3 (08:04→23:41)
[2016-12-07] MEDS: CEFDINIR 300 MG CAPSULE PO SCH (08:04)
[2016-12-07] MEDS: DOXYCYCLINE 100MG TABLET PO SCH (08:04)
[2016-12-07] MEDS: HYDROcodone/APAP 5/325 TABLET PO PRN ×3 (08:24→22:29)
[2016-12-07] MEDS ORDERED: CLARITHROMYCIN 500 MG TABLET PO SCH ×2 (10:00→21:00)
[2016-12-07] MEDS ORDERED: PANTOPROZOLE 40MG TABLET PO SCH (10:00)
[2016-12-07] MEDS ORDERED: AMOXICILLIN 500 MG CAPSULE PO SCH (10:00)
[2016-12-07 16:12] VITALS: BP 125/86
[2016-12-07] MEDS: ENOXAPARIN 40 MG/0.4 ML SQ SCH (16:22)
[2016-12-07 19:28] VITALS: BP 108/71
[2016-12-07] MEDS: PANTOPROZOLE 40MG TABLET PO SCH (20:53)
[2016-12-07] MEDS: CLARITHROMYCIN 500 MG TABLET PO SCH (20:53)
[2016-12-07] MEDS: AMOXICILLIN 500 MG CAPSULE PO SCH (20:53)
[2016-12-07] MEDS: INSULIN DETEMIR 100 UNITS/ML, PEN SQ-INSULIN SCH (21:03)
[2016-12-08 01:45] VITALS: BP 98/66
[2016-12-08] MEDS: HYDROmorphone 2MG TABLET PO PRN ×3 (04:02→20:26)
[2016-12-08] MEDS: INSULIN REGULAR 100 UNITS/ML, 3ML VIAL SQ-INSULIN SCH ×4 (06:34→21:00)
[2016-12-08] MEDS: BACLOFEN 10 MG TABLET PO SCH ×3 (07:43→21:00)
[2016-12-08 08:08] VITALS: BP 104/73
[2016-12-08] MEDS: METRONIDAZOLE PMX 500MG/100ML 100 ML IV SCH ×3 (08:13→23:44)
[2016-12-08] MEDS: LAMOTRIGINE 25 MG TABLET PO SCH ×2 (08:14→21:31)
[2016-12-08] MEDS: AMOXICILLIN 500 MG CAPSULE PO SCH ×2 (08:14→21:36)
[2016-12-08] MEDS: CLARITHROMYCIN 500 MG TABLET PO SCH ×2 (08:14→21:30)
[2016-12-08] MEDS: PANTOPROZOLE 40MG TABLET PO SCH ×2 (08:14→21:31)
[2016-12-08] MEDS: HYDROcodone/APAP 5/325 TABLET PO PRN ×3 (08:28→23:49)
[2016-12-08 08:46] LABS: BLOOD UREA NITROGEN 4 mg/dL (7-18)
[2016-12-08 13:51] VITALS: BP 104/76
[2016-12-08] MEDS: ENOXAPARIN 40 MG/0.4 ML SQ SCH (16:19)
[2016-12-08 19:01] VITALS: BP 112/76
[2016-12-08] MEDS: INSULIN DETEMIR 100 UNITS/ML, PEN SQ-INSULIN SCH (21:33)
[2016-12-09 02:49] VITALS: BP 101/67
[2016-12-09] MEDS: HYDROmorphone 2MG TABLET PO PRN ×3 (03:31→21:16)
[2016-12-09 05:23] LABS: ASPARTATE AMINO TRANSFERASE 7 U/L (15-37); BLOOD UREA NITROGEN 6 mg/dL (7-18)
[2016-12-09] MEDS: INSULIN REGULAR 100 UNITS/ML, 3ML VIAL SQ-INSULIN SCH ×4 (07:00→21:34)
[2016-12-09] MEDS: BACLOFEN 10 MG TABLET PO SCH ×3 (07:21→21:00)
[2016-12-09 07:27] VITALS: BP 112/78
[2016-12-09] MEDS: CLARITHROMYCIN 500 MG TABLET PO SCH ×2 (07:37→21:14)
[2016-12-09] MEDS: AMOXICILLIN 500 MG CAPSULE PO SCH ×2 (07:37→21:15)
[2016-12-09] MEDS: PANTOPROZOLE 40MG TABLET PO SCH ×2 (07:37→21:15)
[2016-12-09] MEDS: LAMOTRIGINE 25 MG TABLET PO SCH ×2 (07:38→21:15)
[2016-12-09] MEDS: METRONIDAZOLE PMX 500MG/100ML 100 ML IV SCH ×3 (07:38→23:22)
[2016-12-09 13:00] VITALS: BP 91/69
[2016-12-09] MEDS: HYDROcodone/APAP 5/325 TABLET PO PRN (13:52)
[2016-12-09] MEDS: ONDANSETRON 2MG/ML, 2ML IVPush PRN (13:52)
[2016-12-09 13:56] VITALS: BP 113/77
[2016-12-09] MEDS: ENOXAPARIN 40 MG/0.4 ML SQ SCH (17:00)
[2016-12-09] MEDS ORDERED: VANCOMYCIN PER PHARMACY MC PRN (17:30)
[2016-12-09] MEDS ORDERED: PHARMACOKINETIC MONITORING MC PRN (18:00)
[2016-12-09] MEDS: VANCOMYCIN 1,200 MG in SODIUM CHLORIDE 0.9% 250 ML IV SCH (18:31)
[2016-12-09 19:01] VITALS: BP 101/65
[2016-12-09] MEDS: INSULIN DETEMIR 100 UNITS/ML, PEN SQ-INSULIN SCH (21:33)
[2016-12-10 01:23] VITALS: BP 101/68
[2016-12-10] MEDS: HYDROcodone/APAP 5/325 TABLET PO PRN ×3 (01:45→21:36)
[2016-12-10] MEDS: HYDROmorphone 2MG TABLET PO PRN ×2 (05:02→16:06)
[2016-12-10 05:42] LABS: ASPARTATE AMINO TRANSFERASE 12 U/L (15-37); BLOOD UREA NITROGEN 7 mg/dL (7-18)
[2016-12-10] MEDS: VANCOMYCIN 1,200 MG in SODIUM CHLORIDE 0.9% 250 ML IV SCH ×2 (05:52→17:20)
[2016-12-10] MEDS: INSULIN REGULAR 100 UNITS/ML, 3ML VIAL SQ-INSULIN SCH ×4 (07:00→21:00)
[2016-12-10 07:43] VITALS: BP 107/72
[2016-12-10] MEDS: METRONIDAZOLE PMX 500MG/100ML 100 ML IV SCH ×2 (07:54→16:06)
[2016-12-10] MEDS: PANTOPROZOLE 40MG TABLET PO SCH ×2 (07:54→21:35)
[2016-12-10] MEDS: CLARITHROMYCIN 500 MG TABLET PO SCH ×2 (07:54→21:34)
[2016-12-10] MEDS: AMOXICILLIN 500 MG CAPSULE PO SCH ×2 (07:54→21:34)
[2016-12-10] MEDS: BACLOFEN 10 MG TABLET PO SCH ×3 (07:55→21:00)
[2016-12-10] MEDS: LAMOTRIGINE 25 MG TABLET PO SCH ×2 (07:55→21:35)
[2016-12-10 12:00] VITALS: BP 104/69
[2016-12-10 14:45] VITALS: BP 106/72
[2016-12-10] MEDS: ENOXAPARIN 40 MG/0.4 ML SQ SCH (16:06)
[2016-12-10 20:09] VITALS: BP 112/75
[2016-12-10] MEDS: INSULIN DETEMIR 100 UNITS/ML, PEN SQ-INSULIN SCH (21:48)
[2016-12-11] MEDS: METRONIDAZOLE PMX 500MG/100ML 100 ML IV SCH ×4 (00:40→23:24)
[2016-12-11 04:34] VITALS: BP 114/75
[2016-12-11 05:37] LABS: ASPARTATE AMINO TRANSFERASE 5 U/L (15-37); BLOOD UREA NITROGEN 8 mg/dL (7-18)
[2016-12-11] MEDS: HYDROmorphone 2MG TABLET PO PRN (06:04)
[2016-12-11] MEDS: VANCOMYCIN 1,200 MG in SODIUM CHLORIDE 0.9% 250 ML IV SCH (06:16)
[2016-12-11] MEDS: INSULIN REGULAR 100 UNITS/ML, 3ML VIAL SQ-INSULIN SCH ×4 (07:00→21:00)
[2016-12-11] MEDS ORDERED: SODIUM PHOSPHATE 4 MEQ/ML IV SCH (08:00)
[2016-12-11] MEDS ORDERED: MAGNESIUM SULFATE PMX 4GM/100M 100 ML IV ONE (08:00)
[2016-12-11] MEDS ORDERED: POTASSIUM CHLORIDE 20 MEQ TAB.ER.PRT PO ONE (08:00)
[2016-12-11 08:10] VITALS: BP 104/72
[2016-12-11] MEDS ORDERED: SODIUM PHOSPHATE 30 MMOL in SODIUM CHLORIDE 0.9% 500 ML IV ONE (08:30)
[2016-12-11] MEDS: LAMOTRIGINE 25 MG TABLET PO SCH ×2 (08:43→21:49)
[2016-12-11] MEDS: PANTOPROZOLE 40MG TABLET PO SCH ×2 (08:43→21:49)
[2016-12-11] MEDS: AMOXICILLIN 500 MG CAPSULE PO SCH ×2 (08:43→21:49)
[2016-12-11] MEDS: CLARITHROMYCIN 500 MG TABLET PO SCH ×2 (08:43→21:48)
[2016-12-11] MEDS: BACLOFEN 10 MG TABLET PO SCH ×3 (08:44→21:00)
[2016-12-11] MEDS: HYDROcodone/APAP 5/325 TABLET PO PRN ×3 (09:30→22:42)
[2016-12-11 15:21] VITALS: BP 108/71
[2016-12-11] MEDS: ENOXAPARIN 40 MG/0.4 ML SQ SCH (16:17)
[2016-12-11] MEDS: VANCOMYCIN 1,400 MG in SODIUM CHLORIDE 0.9% 250 ML IV SCH (18:13)
[2016-12-11 19:59] VITALS: BP 120/79
[2016-12-11] MEDS: INSULIN DETEMIR 100 UNITS/ML, PEN SQ-INSULIN SCH (22:03)
[2016-12-12] MEDS: VANCOMYCIN 1,400 MG in SODIUM CHLORIDE 0.9% 250 ML IV SCH ×2 (05:33→18:10)
[2016-12-12 05:45] LABS: BLOOD UREA NITROGEN 5 mg/dL (7-18)
[2016-12-12 05:49] VITALS: BP 101/66
[2016-12-12] MEDS: INSULIN REGULAR 100 UNITS/ML, 3ML VIAL SQ-INSULIN SCH ×4 (07:00→22:22)
[2016-12-12] MEDS: METRONIDAZOLE PMX 500MG/100ML 100 ML IV SCH ×2 (07:26→15:40)
[2016-12-12] MEDS: BACLOFEN 10 MG TABLET PO SCH ×3 (07:30→21:00)
[2016-12-12 07:37] VITALS: BP 103/68
[2016-12-12] MEDS: AMOXICILLIN 500 MG CAPSULE PO SCH ×2 (08:52→22:25)
[2016-12-12] MEDS: CLARITHROMYCIN 500 MG TABLET PO SCH ×2 (08:52→22:26)
[2016-12-12] MEDS: LAMOTRIGINE 25 MG TABLET PO SCH ×2 (08:52→22:25)
[2016-12-12] MEDS: PANTOPROZOLE 40MG TABLET PO SCH ×2 (08:52→22:25)
[2016-12-12] MEDS: HYDROcodone/APAP 5/325 TABLET PO PRN ×3 (10:51→21:30)
[2016-12-12 14:45] VITALS: BP 106/72
[2016-12-12] MEDS: ENOXAPARIN 40 MG/0.4 ML SQ SCH (18:10)
[2016-12-12 19:23] VITALS: BP 102/68
[2016-12-12] MEDS: INSULIN DETEMIR 100 UNITS/ML, PEN SQ-INSULIN SCH (22:21)
[2016-12-13] MEDS: METRONIDAZOLE PMX 500MG/100ML 100 ML IV SCH ×4 (00:22→23:55)
[2016-12-13 00:39] VITALS: BP 108/73
[2016-12-13 03:53] LABS: BLOOD UREA NITROGEN 5 mg/dL (7-18)
[2016-12-13 03:57] LABS: ASPARTATE AMINO TRANSFERASE 8 U/L (15-37)
[2016-12-13] MEDS: VANCOMYCIN 1,400 MG in SODIUM CHLORIDE 0.9% 250 ML IV SCH ×2 (06:14→18:07)
[2016-12-13 06:34] VITALS: BP 122/84
[2016-12-13] MEDS: INSULIN REGULAR 100 UNITS/ML, 3ML VIAL SQ-INSULIN SCH ×4 (07:00→21:00)
[2016-12-13] MEDS: PANTOPROZOLE 40MG TABLET PO SCH ×2 (08:30→21:03)
[2016-12-13] MEDS: AMOXICILLIN 500 MG CAPSULE PO SCH ×2 (08:30→21:03)
[2016-12-13] MEDS: CLARITHROMYCIN 500 MG TABLET PO SCH ×2 (08:30→21:03)
[2016-12-13] MEDS: LAMOTRIGINE 25 MG TABLET PO SCH ×2 (08:30→21:03)
[2016-12-13] MEDS: BACLOFEN 10 MG TABLET PO SCH ×3 (08:34→21:00)
[2016-12-13] MEDS: HYDROcodone/APAP 5/325 TABLET PO PRN ×3 (09:04→21:04)
[2016-12-13 12:12] VITALS: BP 113/76
[2016-12-13] MEDS: ENOXAPARIN 40 MG/0.4 ML SQ SCH (16:48)
[2016-12-13 18:54] VITALS: BP 104/73
[2016-12-13] MEDS: INSULIN DETEMIR 100 UNITS/ML, PEN SQ-INSULIN SCH (21:06)
[2016-12-14 02:42] VITALS: BP 119/84
[2016-12-14] MEDS: HYDROcodone/APAP 5/325 TABLET PO PRN ×4 (05:31→21:58)
[2016-12-14] MEDS ORDERED: CATHFLO-ALTEPLASE 2 MG/2 ML CATHFLUSH ONE (06:00)
[2016-12-14] MEDS: VANCOMYCIN 1,400 MG in SODIUM CHLORIDE 0.9% 250 ML IV SCH ×3 (06:40→17:07)
[2016-12-14] MEDS: INSULIN REGULAR 100 UNITS/ML, 3ML VIAL SQ-INSULIN SCH ×4 (07:00→21:50)
[2016-12-14 07:42] VITALS: BP 114/81
[2016-12-14] MEDS: CLARITHROMYCIN 500 MG TABLET PO SCH ×2 (09:12→21:25)
[2016-12-14] MEDS: PANTOPROZOLE 40MG TABLET PO SCH ×2 (09:12→21:25)
[2016-12-14] MEDS: BACLOFEN 10 MG TABLET PO SCH ×4 (09:12→21:25)
[2016-12-14] MEDS: AMOXICILLIN 500 MG CAPSULE PO SCH ×2 (09:12→21:25)
[2016-12-14] MEDS: LAMOTRIGINE 25 MG TABLET PO SCH ×2 (09:12→21:24)
[2016-12-14] MEDS: METRONIDAZOLE PMX 500MG/100ML 100 ML IV SCH ×2 (10:12→18:32)
[2016-12-14 13:07] VITALS: BP 121/78
[2016-12-14] MEDS: ENOXAPARIN 40 MG/0.4 ML SQ SCH (17:06)
[2016-12-14 21:00] VITALS: BP 122/79
[2016-12-14] MEDS: INSULIN DETEMIR 100 UNITS/ML, PEN SQ-INSULIN SCH (21:50)
[2016-12-15] MEDS: METRONIDAZOLE PMX 500MG/100ML 100 ML IV SCH (01:53)
[2016-12-15 02:36] VITALS: BP 116/76
[2016-12-15] MEDS: VANCOMYCIN 1,400 MG in SODIUM CHLORIDE 0.9% 250 ML IV SCH (05:19)
[2016-12-15 05:39] LABS: BLOOD UREA NITROGEN 9 mg/dL (7-18)
[2016-12-15 05:43] LABS: ASPARTATE AMINO TRANSFERASE 9 U/L (15-37)
[2016-12-15] MEDS: INSULIN REGULAR 100 UNITS/ML, 3ML VIAL SQ-INSULIN SCH ×3 (06:53→16:07)
[2016-12-15 07:44] VITALS: BP 110/74
[2016-12-15] MEDS: HYDROmorphone 2MG TABLET PO PRN (09:00)
[2016-12-15] MEDS: AMOXICILLIN 500 MG CAPSULE PO SCH (09:00)
[2016-12-15] MEDS: BACLOFEN 10 MG TABLET PO SCH ×2 (09:00→15:43)
[2016-12-15] MEDS: LAMOTRIGINE 25 MG TABLET PO SCH (09:01)
[2016-12-15] MEDS: CLARITHROMYCIN 500 MG TABLET PO SCH (09:01)
[2016-12-15] MEDS: PANTOPROZOLE 40MG TABLET PO SCH (09:01)
[2016-12-15] MEDS: metroNIDAZOLE 500 MG TABLET PO SCH ×2 (11:15→15:58)
[2016-12-15] MEDS: HYDROcodone/APAP 5/325 TABLET PO PRN ×2 (12:14→16:07)
[2016-12-15 13:00] VITALS: BP 114/71
[2016-12-15] MEDS ORDERED: MAGNESIUM SULFATE PMX 2GM/50ML 50 ML IV ONE (15:30)
[2016-12-15] MEDS ORDERED: METR500T PO (15:31)
[2016-12-15] MEDS ORDERED: PANT40TA5 PO (15:31)
[2016-12-15] MEDS ORDERED: AMOX-291 PO (15:31)
[2016-12-15] MEDS ORDERED: INSU100I28 SQ-INSULIN (15:31)
[2016-12-15] MEDS ORDERED: CLAR500T PO (15:31)
[2016-12-15] MEDS: ENOXAPARIN 40 MG/0.4 ML SQ SCH (16:30)
[2016-12-15] MEDS ORDERED: HYDROmorphone 2MG TABLET PO PRN (21:00)
== END 2016-12-15 17:35 | DRG 329 ==
LOC: ED 11-25 00:28 → EDIP 11-25 01:41 → 3NW 11-25 02:21 → 4NOR 11-27 14:00
PROC: 0D9670Z Drainage of Stomach with Drainage Device, Via Natural or Artificial Opening (ICD-10-PCS; principal; 2016-11-26)
PROC: 0DTH0ZZ Resection of Cecum, Open Approach (ICD-10-PCS; 2016-11-27)
PROC: 0DTJ0ZZ Resection of Appendix, Open Approach (ICD-10-PCS; 2016-11-27)
PROC: 8E0W4CZ Robotic Assisted Procedure of Trunk Region, Percutaneous Endoscopic Approach (ICD-10-PCS; 2016-11-27)
PROC: 02HV33Z Insertion of Infusion Device into Superior Vena Cava, Percutaneous Approach (ICD-10-PCS; 2016-12-08)
PROC: B5181ZA Fluoroscopy of Superior Vena Cava using Low Osmolar Contrast, Guidance (ICD-10-PCS; 2016-12-08)
PROC: B548ZZA Ultrasonography of Superior Vena Cava, Guidance (ICD-10-PCS; 2016-12-08)
DX: K56.5 Intestinal adhesions [bands] with obstruction (postinfection) (principal); K63.1 Perforation of intestine (nontraumatic); A04.7 Enterocolitis due to Clostridium difficile; R65.10 Systemic inflammatory response syndrome (SIRS) of non-infectious origin without acute organ dysfunction; E87.1 Hypo-osmolality and hyponatremia; E44.1 Mild protein-calorie malnutrition; L03.90 Cellulitis, unspecified; G40.909 Epilepsy, unspecified, not intractable, without status epilepticus; G35 Multiple sclerosis; I10 Essential (primary) hypertension; E83.52 Hypercalcemia; E86.0 Dehydration; E11.65 Type 2 diabetes mellitus with hyperglycemia; D64.9 Anemia, unspecified; K80.50 Calculus of bile duct without cholangitis or cholecystitis without obstruction; E87.6 Hypokalemia; B96.81 Helicobacter pylori [H. pylori] as the cause of diseases classified elsewhere; D47.3 Essential (hemorrhagic) thrombocythemia; F17.210 Nicotine dependence, cigarettes, uncomplicated; K56.7 Ileus, unspecified; Z90.49 Acquired absence of other specified parts of digestive tract; Z88.0 Allergy status to penicillin; Z85.41 Personal history of malignant neoplasm of cervix uteri; Z68.20 Body mass index [BMI] 20.0-20.9, adult; Z79.899 Other long term (current) drug therapy; Z80.3 Family history of malignant neoplasm of breast; Z82.3 Family history of stroke; Z82.49 Family history of ischemic heart disease and other diseases of the circulatory system; Z83.3 Family history of diabetes mellitus
CPT/HCPCS: 36415; 36569; 71010; 74000; 74177; 74181; 76937; 77001; 80048; 80053; 80076; 80202; 81003; 82040; 82247; 82248; 82962; 83036; 83605; 83690; 83735; 84100; 84134; 84478; 84703; 85025; 86677; 87040; 87046; 87070; 87077; 87186; 87205; 87324; 87328; 87329; 87493; 87899; 88307; 89055; 93005; 96361; 96374; 96375; 96376; J0610; J0690; J1170; J1650; J1815; J1885; J2175; J2405; J2543; J2704; J2997; J3370; J3475; J3480; J7042; Q9967; C1751; C8901; J0330; J0780; J2270; J2765; J3420; J7030; J7040; J7050; J7120; S0028

== ENCOUNTER 2017-01-11 11:48 | Inpatient (IN) | payer OTHER ==
[~2017-01-11] VITALS: Ht 167.6 cm; Wt 56.3 kg
[~2017-01-11 11:48] MED LIST changes: +AMOX-291 PO; +CLAR500T PO; +PANT40TA5 PO
[2017-01-11] MEDS ORDERED: SODIUM CHLORIDE 0.9% 1,000ML IVBOLUS ONE (12:00)
[2017-01-11] MEDS ORDERED: SODIUM CHLORIDE FLUSH 10ML SYR IVF ONE (12:00)
[2017-01-11] MEDS ORDERED: ONDANSETRON 2MG/ML, 2ML ONE (12:19)
[2017-01-11] MEDS ORDERED: ONDANSETRON 2MG/ML, 2ML IVPush ONE (12:30)
[2017-01-11 12:56] LABS: BLOOD UREA NITROGEN 12 mg/dL (7-18)
[2017-01-11 13:07] LABS: ASPARTATE AMINO TRANSFERASE 12 U/L (15-37)
[2017-01-11] MEDS ORDERED: NS + 40MEQ KCL 1,000 ML IV SCH (13:30)
[2017-01-11] MEDS ORDERED: POTASSIUM CHLORIDE 20 MEQ TAB.ER.PRT PO ONE (13:30)
[2017-01-11] MEDS ORDERED: MAGNESIUM SULFATE PMX 2GM/50ML 50 ML IV ONE (13:30)
[2017-01-11] MEDS ORDERED: POTASSIUM CHLORIDE 20 MEQ TAB.ER.PRT ONE (14:01)
[2017-01-11] MEDS ORDERED: NS + 40MEQ KCL 1,000 ML IV ONE (14:01)
[2017-01-11] MEDS ORDERED: ONDANSETRON 2MG/ML, 2ML IVPush PRN (14:30)
[2017-01-11] MEDS ORDERED: morphine SULFATE 10 MG/ML, 1ML IVPush PRN (14:30)
[2017-01-11] MEDS ORDERED: ACETAMINOPHEN 325 MG TABLET PO PRN (14:30)
[2017-01-11 15:04] VITALS: BP 118/75
[2017-01-11] MEDS ORDERED: GLUCAGON 1 MG IM PRN (15:30)
[2017-01-11] MEDS ORDERED: DEXTROSE 4 GM TAB.CHEW PO PRN (15:30)
[2017-01-11] MEDS ORDERED: DEXTROSE 50%, 50ML SYRINGE IVPush PRN (15:30)
[2017-01-11] MEDS: ENOXAPARIN 40 MG/0.4 ML SQ SCH (15:38)
[2017-01-11] MEDS: BACLOFEN 10 MG TABLET PO SCH ×2 (16:00→20:59)
[2017-01-11] MEDS: INSULIN ASPART 100 UNITS/ML, PEN SQ-INSULIN SCH ×2 (16:00→21:05)
[2017-01-11] MEDS ORDERED: SODIUM PHOSPHATE 20 MMOL in SODIUM CHLORIDE 0.9% 500 ML IV ONE (17:00)
[2017-01-11 17:11] LABS: BLOOD UREA NITROGEN 10 mg/dL (7-18)
[2017-01-11 17:53] LABS: HCG UR OBC PASS
[2017-01-11] MEDS: POTASSIUM CHLORIDE 20 MEQ TAB.ER.PRT PO SCH (18:27)
[2017-01-11 19:41] VITALS: BP 113/76
[2017-01-11] MEDS: SODIUM CHLORIDE FLUSH 10ML SYR IVF SCH (21:04)
[2017-01-11] MEDS: LAMOTRIGINE 25 MG TABLET PO SCH (21:04)
[2017-01-11] MEDS: INSULIN DETEMIR 100 UNITS/ML, PEN SQ-INSULIN SCH (21:05)
[2017-01-11] MEDS: HYDROcodone/APAP 5/325 TABLET PO PRN (22:49)
[2017-01-12 02:41] VITALS: BP 94/66
[2017-01-12 06:23] LABS: ASPARTATE AMINO TRANSFERASE 9 U/L (15-37); BLOOD UREA NITROGEN 8 mg/dL (7-18)
[2017-01-12] MEDS ORDERED: POTASSIUM CHLORIDE 40 MEQ in SODIUM CHLORIDE 0.9% 500 ML IV ONE (07:00)
[2017-01-12] MEDS: INSULIN ASPART 100 UNITS/ML, PEN SQ-INSULIN SCH ×4 (07:00→21:47)
[2017-01-12 07:18] VITALS: BP 98/63
[2017-01-12] MEDS ORDERED: MAGNESIUM SULFATE PMX 2GM/50ML 50 ML IV ONE (07:30)
[2017-01-12] MEDS: BACLOFEN 10 MG TABLET PO SCH ×4 (09:00→21:00)
[2017-01-12] MEDS: POTASSIUM CHLORIDE 20 MEQ TAB.ER.PRT PO SCH ×2 (09:23→15:58)
[2017-01-12] MEDS: SODIUM CHLORIDE FLUSH 10ML SYR IVF SCH ×2 (09:23→21:51)
[2017-01-12] MEDS: LAMOTRIGINE 25 MG TABLET PO SCH ×2 (09:24→21:48)
[2017-01-12] MEDS ORDERED: SODIUM CHLORIDE 0.9% 1,000ML IVBOLUS ONE (12:30)
[2017-01-12] MEDS: VANCOMYCIN 50 MG/ML ORAL SUSP PO SCH ×2 (13:37→21:47)
[2017-01-12] MEDS: SODIUM CHLORIDE 0.9% 1,000 ML IV SCH ×2 (13:37→20:30)
[2017-01-12] MEDS: ENOXAPARIN 40 MG/0.4 ML SQ SCH (13:37)
[2017-01-12 14:39] VITALS: BP 105/71
[2017-01-12 20:45] VITALS: BP 111/74
[2017-01-12] MEDS: INSULIN DETEMIR 100 UNITS/ML, PEN SQ-INSULIN SCH (21:48)
[2017-01-13 03:41] VITALS: BP_SYST 106; BP_SYST 89; BP_SYST 98; BP_DIAS 61; BP_DIAS 63; BP_DIAS 69
[2017-01-13] MEDS: VANCOMYCIN 50 MG/ML ORAL SUSP PO SCH ×4 (03:48→20:55)
[2017-01-13 05:21] LABS: BLOOD UREA NITROGEN 3 mg/dL (7-18)
[2017-01-13] MEDS: SODIUM CHLORIDE 0.9% 1,000 ML IV SCH ×3 (05:26→20:55)
[2017-01-13] MEDS ORDERED: MAGNESIUM SULFATE PMX 2GM/50ML 50 ML IV ONE (06:00)
[2017-01-13] MEDS ORDERED: POTASSIUM CHLORIDE 20 MEQ TAB.ER.PRT PO ONE (06:00)
[2017-01-13] MEDS: INSULIN ASPART 100 UNITS/ML, PEN SQ-INSULIN SCH ×4 (07:00→20:57)
[2017-01-13] MEDS ORDERED: POTASSIUM CHLORIDE 40 MEQ in SODIUM CHLORIDE 0.9% 500 ML IV ONE (07:30)
[2017-01-13] MEDS ORDERED: MAGNESIUM SULFATE PMX 4GM/100M 100 ML IV ONE (07:30)
[2017-01-13 08:05] VITALS: BP 106/70
[2017-01-13] MEDS: BACLOFEN 10 MG TABLET PO SCH ×3 (08:58→21:00)
[2017-01-13] MEDS: POTASSIUM CHLORIDE 20 MEQ TAB.ER.PRT PO SCH ×2 (09:00→15:14)
[2017-01-13] MEDS: LAMOTRIGINE 25 MG TABLET PO SCH ×2 (09:01→20:55)
[2017-01-13] MEDS: SODIUM CHLORIDE FLUSH 10ML SYR IVF SCH ×2 (09:04→21:00)
[2017-01-13] MEDS ORDERED: MAGNESIUM SULFATE PMX 2GM/50ML 50 ML IVPB ONE (10:00)
[2017-01-13] MEDS: ENOXAPARIN 40 MG/0.4 ML SQ SCH (12:03)
[2017-01-13 15:07] VITALS: BP 97/64
[2017-01-13 19:21] VITALS: BP 120/84
[2017-01-13 19:32] VITALS: BP 107/62
[2017-01-13] MEDS: INSULIN DETEMIR 100 UNITS/ML, PEN SQ-INSULIN SCH (20:57)
[2017-01-13] MEDS: LORazepam 2 MG/ML, 1ML IVPush PRN (21:00)
[2017-01-14] MEDS: VANCOMYCIN 50 MG/ML ORAL SUSP PO SCH ×4 (03:33→22:03)
[2017-01-14 03:36] VITALS: BP 105/73
[2017-01-14] MEDS: SODIUM CHLORIDE 0.9% 1,000 ML IV SCH ×3 (04:57→22:03)
[2017-01-14 06:02] LABS: BLOOD UREA NITROGEN 2 mg/dL (7-18)
[2017-01-14] MEDS: INSULIN ASPART 100 UNITS/ML, PEN SQ-INSULIN SCH ×4 (08:00→20:36)
[2017-01-14] MEDS: BACLOFEN 10 MG TABLET PO SCH ×4 (08:11→20:36)
[2017-01-14] MEDS: LAMOTRIGINE 25 MG TABLET PO SCH ×2 (08:11→20:36)
[2017-01-14] MEDS: POTASSIUM CHLORIDE 20 MEQ TAB.ER.PRT PO SCH ×2 (08:11→16:22)
[2017-01-14] MEDS: SODIUM CHLORIDE FLUSH 10ML SYR IVF SCH ×2 (08:15→22:04)
[2017-01-14 08:31] VITALS: BP 110/72
[2017-01-14 11:49] VITALS: BP_SYST 112; BP_SYST 122; BP_DIAS 75; BP_DIAS 81
[2017-01-14] MEDS: ENOXAPARIN 40 MG/0.4 ML SQ SCH (13:03)
[2017-01-14 15:52] VITALS: BP_SYST 113; BP_SYST 118; BP_SYST 125; BP_DIAS 80; BP_DIAS 83; BP_DIAS 85
[2017-01-14 20:22] VITALS: BP 121/79
[2017-01-14] MEDS ORDERED: GLUCAGON 1 MG IM PRN ×2 (20:30)
[2017-01-14] MEDS ORDERED: DEXTROSE 50%, 50ML SYRINGE IVPush PRN ×2 (20:30)
[2017-01-14] MEDS ORDERED: DEXTROSE 4 GM TAB.CHEW PO PRN (20:30)
[2017-01-14] MEDS ORDERED: ACETAMINOPHEN 325 MG TABLET PO PRN (20:30)
[2017-01-14] MEDS ORDERED: SODIUM CHLORIDE FLUSH 10ML SYR IVF SCH (21:00)
[2017-01-14 21:21] LABS: ASPARTATE AMINO TRANSFERASE 13 U/L (15-37); BLOOD UREA NITROGEN 3 mg/dL (7-18)
[2017-01-14] MEDS: INSULIN DETEMIR 100 UNITS/ML, PEN SQ-INSULIN SCH (22:04)
[2017-01-14] MEDS: LORazepam 2 MG/ML, 1ML IVPush PRN (22:13)
[2017-01-15] MEDS ORDERED: POTASSIUM CHLORIDE 20 MEQ TAB.ER.PRT PO ONE (03:00)
[2017-01-15 03:55] VITALS: BP 114/75
[2017-01-15] MEDS: VANCOMYCIN 50 MG/ML ORAL SUSP PO SCH ×4 (04:40→22:20)
[2017-01-15] MEDS: SODIUM CHLORIDE 0.9% 1,000 ML IV SCH ×3 (04:40→20:49)
[2017-01-15] MEDS: HYDROcodone/APAP 5/325 TABLET PO PRN (04:52)
[2017-01-15 05:44] LABS: BLOOD UREA NITROGEN 3 mg/dL (7-18)
[2017-01-15] MEDS: INSULIN ASPART 100 UNITS/ML, PEN SQ-INSULIN SCH ×4 (07:29→20:52)
[2017-01-15 08:41] VITALS: BP_SYST 129; BP_SYST 139; BP_DIAS 80; BP_DIAS 93
[2017-01-15] MEDS: BACLOFEN 10 MG TABLET PO SCH ×3 (08:50→20:55)
[2017-01-15] MEDS: LAMOTRIGINE 25 MG TABLET PO SCH ×2 (09:03→20:55)
[2017-01-15] MEDS: POTASSIUM CHLORIDE 20 MEQ TAB.ER.PRT PO SCH ×2 (09:03→16:04)
[2017-01-15] MEDS: SODIUM CHLORIDE FLUSH 10ML SYR IVF SCH ×2 (09:03→20:50)
[2017-01-15 09:53] VITALS: BP 123/80
[2017-01-15 14:29] VITALS: BP_SYST 124; BP_SYST 126; BP_SYST 131; BP_DIAS 83; BP_DIAS 84; BP_DIAS 88
[2017-01-15] MEDS: ENOXAPARIN 40 MG/0.4 ML SQ SCH (14:41)
[2017-01-15 20:10] VITALS: BP_SYST 115; BP_SYST 123; BP_SYST 124; BP_DIAS 71; BP_DIAS 74; BP_DIAS 80
[2017-01-15] MEDS: INSULIN DETEMIR 100 UNITS/ML, PEN SQ-INSULIN SCH (20:54)
[2017-01-15] MEDS: LORazepam 2 MG/ML, 1ML IVPush PRN (22:25)
[2017-01-16 01:24] VITALS: BP 123/77
[2017-01-16] MEDS: VANCOMYCIN 50 MG/ML ORAL SUSP PO SCH ×2 (05:02→11:12)
[2017-01-16] MEDS: SODIUM CHLORIDE 0.9% 1,000 ML IV SCH ×2 (05:02→13:30)
[2017-01-16 06:06] LABS: BLOOD UREA NITROGEN 3 mg/dL (7-18)
[2017-01-16] MEDS: INSULIN ASPART 100 UNITS/ML, PEN SQ-INSULIN SCH ×2 (07:00→11:00)
[2017-01-16 07:36] VITALS: BP 118/76
[2017-01-16] MEDS ORDERED: VANC1VIA3 PO (08:44)
[2017-01-16] MEDS ORDERED: POTA20TA6 PO (08:44)
[2017-01-16] MEDS: LAMOTRIGINE 25 MG TABLET PO SCH (08:53)
[2017-01-16] MEDS: BACLOFEN 10 MG TABLET PO SCH (08:54)
[2017-01-16] MEDS: POTASSIUM CHLORIDE 20 MEQ TAB.ER.PRT PO SCH (08:54)
[2017-01-16] MEDS: SODIUM CHLORIDE FLUSH 10ML SYR IVF SCH (08:54)
[2017-01-16] MEDS: ENOXAPARIN 40 MG/0.4 ML SQ SCH (14:30)
[2017-01-16 15:08] VITALS: BP 115/71
== END 2017-01-16 15:55 | disposition home or self-care (01) | DRG 372 ==
LOC: ED 12:57 → EDIP 13:13 → 5SO 14:46 → 4EST 01-15 09:34
PROVIDERS: ADMIT Hospitalist
PROC: 0T9B70Z Drainage of Bladder with Drainage Device, Via Natural or Artificial Opening (ICD-10-PCS; principal; 2017-01-11)
DX: A04.7 Enterocolitis due to Clostridium difficile (principal); E44.0 Moderate protein-calorie malnutrition; E87.6 Hypokalemia; E86.0 Dehydration; E83.42 Hypomagnesemia; I10 Essential (primary) hypertension; G40.909 Epilepsy, unspecified, not intractable, without status epilepticus; G35 Multiple sclerosis; E11.9 Type 2 diabetes mellitus without complications; I95.9 Hypotension, unspecified; Z82.49 Family history of ischemic heart disease and other diseases of the circulatory system; Z85.41 Personal history of malignant neoplasm of cervix uteri; Z92.21 Personal history of antineoplastic chemotherapy; Z92.3 Personal history of irradiation; Z90.49 Acquired absence of other specified parts of digestive tract; Z80.9 Family history of malignant neoplasm, unspecified; Z79.899 Other long term (current) drug therapy; Z79.4 Long term (current) use of insulin; Z68.20 Body mass index [BMI] 20.0-20.9, adult
CPT/HCPCS: 36415; 70450; 71010; 74000; 80048; 80053; 81001; 81025; 82533; 82962; 83735; 84100; 84132; 84443; 84703; 85025; 85651; 87086; 87324; 87493; 89055; 93005; 96361; 96374; J1650; J1815; J2405; J3370; J3480; J2060; J3475; J7030; J7040

== ENCOUNTER → 2017-01-18 | Outpatient (CLI) | payer OTHER ==
[~2017-01-18] MED LIST changes: +POTA20TA6 PO; +VANC1VIA3 PO
[2017-01-18 15:01] LABS: BLOOD UREA NITROGEN 7 mg/dL (7-18)
== END | disposition home or self-care (01) ==
LOC: LAB 14:23
DX: D64.9 Anemia, unspecified (principal); E83.42 Hypomagnesemia; E87.6 Hypokalemia
CPT/HCPCS: 36415; 80048; 83735; 85025

== ENCOUNTER → 2017-01-23 | Outpatient (CLI) | payer OTHER ==
[2017-01-23 12:13] LABS: BLOOD UREA NITROGEN 16 mg/dL (7-18)
== END | disposition home or self-care (01) ==
LOC: LAB 11:26
PROVIDERS: ATTEND Family Medicine
DX: E11.8 Type 2 diabetes mellitus with unspecified complications (principal); E87.6 Hypokalemia
CPT/HCPCS: 36415; 80048; 83036

== ENCOUNTER → 2017-01-25 | Outpatient (CLI) | payer MEDICAID, OTHER | END | disposition home or self-care (01) | LOC: PETCFH 13:11 | PROVIDERS: ATTEND Specialist | DX: C53.9 Malignant neoplasm of cervix uteri, unspecified (principal) | CPT/HCPCS: 78815; A9552 ==

== ENCOUNTER 2017-01-30 18:49 | Emergency (ER) | payer OTHER ==
[~2017-01-30] VITALS: Ht 175.3 cm; Wt 50.1 kg
[2017-01-30] MEDS ORDERED: SODIUM CHLORIDE 0.9% 1,000ML IVBOLUS ONE ×2 (19:30→21:00)
[2017-01-30] MEDS ORDERED: SODIUM CHLORIDE FLUSH 10ML SYR IVF ONE (19:30)
[2017-01-30 19:59] LABS: BLOOD UREA NITROGEN 11 mg/dL (7-18)
[2017-01-30 20:16] LABS: IS PT STATUS REG ER OR PRE ER? YES
[2017-01-30] MEDS ORDERED: POTASSIUM CHLORIDE 20 MEQ TAB.ER.PRT ONE (20:26)
[2017-01-30] MEDS ORDERED: POTASSIUM CHLORIDE 20 MEQ TAB.ER.PRT PO ONE (20:30)
[2017-01-30 22:18] VITALS: BP 105/60
== END 2017-01-30 22:18 | disposition home or self-care (01) ==
LOC: ED 21:45
DX: R53.1 Weakness (principal); R19.7 Diarrhea, unspecified; E87.6 Hypokalemia; E11.9 Type 2 diabetes mellitus without complications; Z88.0 Allergy status to penicillin; Z90.49 Acquired absence of other specified parts of digestive tract
CPT/HCPCS: 36415; 71010; 80048; 82040; 84484; 85025; 93005; 96360; 96361; 99285; J7030

== ENCOUNTER 2017-02-15 09:26 | Emergency (ER) | payer OTHER, MEDICAID ==
[~2017-02-15] VITALS: Ht 175.3 cm; Wt 54.4 kg
[2017-02-15] MEDS ORDERED: SODIUM CHLORIDE FLUSH 10ML SYR IVF ONE (10:30)
[2017-02-15 10:44] LABS: ASPARTATE AMINO TRANSFERASE 17 U/L (15-37); BLOOD UREA NITROGEN 13 mg/dL (7-18)
[2017-02-15] MEDS ORDERED: POTASSIUM CHLORIDE 20 MEQ TAB.ER.PRT ONE (11:43)
[2017-02-15] MEDS ORDERED: POTASSIUM CHLORIDE 20 MEQ TAB.ER.PRT PO ONE (12:00)
[2017-02-15 12:14] VITALS: BP 110/75
== END 2017-02-15 12:24 | disposition home or self-care (01) ==
LOC: ED 10:34
DX: R19.7 Diarrhea, unspecified (principal); E87.6 Hypokalemia; N30.90 Cystitis, unspecified without hematuria; E11.9 Type 2 diabetes mellitus without complications
CPT/HCPCS: 36415; 80053; 81001; 82010; 83605; 85025; 87077; 87086; 87186; 87324; 89055; 93005

== ENCOUNTER 2017-04-20 19:08 | Emergency (ER) | payer OTHER, MEDICAID ==
[~2017-04-20] VITALS: Ht 175.3 cm; Wt 62.3 kg
[~2017-04-20 19:08] MED LIST changes: -ACID1GRA2 PO; +ACID1GRA3 PO; -DEXA4VIA PO; +DEXA4VIA39 PO; -HYDR-3138 PO; +HYDR-3237 PO; -ONDA-39 PO; +ONDA4TAB12 PO; -OXYC-229 PO; +OXYC-307 PO
[2017-04-20] MEDS ORDERED: MORPHINE SULFATE 4 MG/ML, 1ML IVPush PRN (20:00)
[2017-04-20] MEDS ORDERED: SODIUM CHLORIDE FLUSH 10ML SYR IVF ONE (20:00)
[2017-04-20] MEDS ORDERED: FAMOTIDINE 20 MG/2 ML IVP ONE (20:00)
[2017-04-20] MEDS ORDERED: ONDANSETRON 2MG/ML, 2ML IVPush ONE (20:00)
[2017-04-20] MEDS ORDERED: SODIUM CHLORIDE 0.9% 1,000ML IVBOLUS ONE (20:00)
[2017-04-20 20:04] LABS: HEMATOCRIT 34.8 % (34.6-47.8); HEMOGLOBIN 11.5 g/dL (11.7-16.4); WHITE BLOOD COUNT 5.6 x10^3/uL (3.4-10)
[2017-04-20 20:15] LABS: ASPARTATE AMINO TRANSFERASE 13 U/L (15-37); BLOOD UREA NITROGEN 18 mg/dL (7-18)
[2017-04-20] MEDS ORDERED: OMNIPAQUE 350 MG/ML, 100ML BOTTLE ONE (20:37)
[2017-04-20] MEDS ORDERED: ONDANSETRON 2MG/ML, 2ML ONE (20:59)
[2017-04-20] MEDS ORDERED: MORPHINE SULFATE 4 MG/ML, 1ML ONE (20:59)
[2017-04-20] MEDS ORDERED: POTASSIUM CHLORIDE 20 MEQ TAB.ER.PRT ONE (20:59)
[2017-04-20] MEDS ORDERED: FAMOTIDINE 20 MG/2 ML ONE (20:59)
[2017-04-20] MEDS ORDERED: POTASSIUM CHLORIDE 20 MEQ TAB.ER.PRT PO ONE (21:00)
[2017-04-20 21:11] LABS: IS PT STATUS REG ER OR PRE ER? YES
[2017-04-20 21:41] LABS: HCG UR OBC PASS
[2017-04-21 00:41] VITALS: BP 126/88
== END 2017-04-21 00:44 | disposition home or self-care (01) ==
LOC: ED 22:25
DX: R10.84 Generalized abdominal pain (principal); E11.9 Type 2 diabetes mellitus without complications; G40.909 Epilepsy, unspecified, not intractable, without status epilepticus; Z88.1 Allergy status to other antibiotic agents
CPT/HCPCS: 36415; 74022; 74177; 80053; 81001; 81025; 83690; 84484; 85025; 87086; 93005; 96361; 96374; 96375; 99285; J2405; J7030; Q9967; S0028

== ENCOUNTER 2017-04-30 17:13 | Emergency (ER) | payer MEDICAID, OTHER ==
[~2017-04-30] VITALS: Ht 175.3 cm; Wt 62.7 kg
[2017-04-30 17:45] VITALS: BP 127/80
[2017-04-30] MEDS ORDERED: LORA0.5T PO (17:53)
[2017-04-30 18:07] LABS: HEMATOCRIT 37.4 % (34.6-47.8); HEMOGLOBIN 12.1 g/dL (11.7-16.4); WHITE BLOOD COUNT 6.1 x10^3/uL (3.4-10)
[2017-04-30 18:19] LABS: BLOOD UREA NITROGEN 17 mg/dL (7-18)
[2017-04-30 18:24] LABS: ASPARTATE AMINO TRANSFERASE 20 U/L (15-37)
== END 2017-04-30 19:04 | disposition home or self-care (01) ==
LOC: ED 18:58
DX: R10.32 Left lower quadrant pain (principal); E11.9 Type 2 diabetes mellitus without complications; Z90.49 Acquired absence of other specified parts of digestive tract
CPT/HCPCS: 36415; 74020; 80053; 81001; 84703; 85025; 99285

== ENCOUNTER 2017-05-19 17:33 | Emergency (ER) | payer MEDICAID ==
[~2017-05-19] VITALS: Ht 175.3 cm; Wt 64.5 kg
[~2017-05-19 17:33] MED LIST changes: +LORA0.5T PO
[2017-05-19] MEDS ORDERED: SODIUM CHLORIDE FLUSH 10ML SYR IVF ONE ×2 (18:00→19:30)
[2017-05-19 18:34] LABS: HEMATOCRIT 38.4 % (34.6-47.8); HEMOGLOBIN 12.4 g/dL (11.7-16.4); WHITE BLOOD COUNT 9.1 x10^3/uL (3.4-10)
[2017-05-19 18:35] LABS: ASPARTATE AMINO TRANSFERASE 12 U/L (15-37); BLOOD UREA NITROGEN 13 mg/dL (7-18)
[2017-05-19] MEDS ORDERED: ONDANSETRON 2MG/ML, 2ML IVPush ONE (19:30)
[2017-05-19] MEDS ORDERED: HYDROmorphone 1 MG/ML, 1ML IVPush PRN (19:30)
[2017-05-19] MEDS ORDERED: SODIUM CHLORIDE 0.9% 1,000ML IVBOLUS ONE (19:30)
[2017-05-19] MEDS ORDERED: HYDROmorphone 1 MG/ML, 1ML ONE (20:07)
[2017-05-19] MEDS ORDERED: ONDANSETRON 2MG/ML, 2ML ONE (20:08)
[2017-05-19 21:46] VITALS: BP 107/67
[2017-05-19] MEDS ORDERED: CEFTRIAXONE PMX 1GM/50ML 50 ML IV ONE (22:00)
[2017-05-19] MEDS ORDERED: CEFTRIAXONE PMX 1GM/50ML 50 ML ONE (22:01)
== END 2017-05-19 22:32 | disposition other institution (70) ==
LOC: ED 20:54
DX: N12 Tubulo-interstitial nephritis, not specified as acute or chronic (principal); N13.2 Hydronephrosis with renal and ureteral calculous obstruction; N30.91 Cystitis, unspecified with hematuria
CPT/HCPCS: 36415; 74176; 80053; 81001; 83690; 84703; 85025; 87077; 87086; 87147; 87186; 96361; 96365; 96375; 99285; J0696; J1170; J2405; J7030

== ENCOUNTER 2017-06-05 12:58 | Emergency (ER) | payer MEDICAID ==
[~2017-06-05] VITALS: Ht 175.3 cm; Wt 66.2 kg
[2017-06-05] MEDS ORDERED: BACL20TA PO (13:47)
[2017-06-05] MEDS ORDERED: COLE1TAB5 PO (13:47)
[2017-06-05] MEDS ORDERED: FOLI-17 PO (13:47)
[2017-06-05] MEDS ORDERED: DULO30CA2 PO (13:47)
[2017-06-05] MEDS ORDERED: ZOLP10TA5 PO (13:47)
[2017-06-05] MEDS ORDERED: LAMO25TB PO (13:47)
[2017-06-05] MEDS ORDERED: LACT1TAB13 PO (13:47)
[2017-06-05] MEDS ORDERED: FERR325T18 PO (13:47)
[2017-06-05] MEDS ORDERED: ONDANSETRON 2MG/ML, 2ML ONE (14:13)
[2017-06-05] MEDS ORDERED: HYDROmorphone 1 MG/ML, 1ML ONE ×2 (14:13→18:42)
[2017-06-05 14:25] LABS: HEMATOCRIT 38.1 % (34.6-47.8); WHITE BLOOD COUNT 6.6 x10^3/uL (3.4-10)
[2017-06-05] MEDS: HYDROmorphone 1 MG/ML, 1ML IVPush PRN ×2 (14:27→18:44)
[2017-06-05] MEDS ORDERED: SODIUM CHLORIDE FLUSH 10ML SYR IVF ONE (14:30)
[2017-06-05] MEDS ORDERED: ONDANSETRON 2MG/ML, 2ML IVPush ONE (14:30)
[2017-06-05] MEDS ORDERED: SODIUM CHLORIDE 0.9% 1,000ML IVBOLUS ONE (14:30)
[2017-06-05 14:34] LABS: ASPARTATE AMINO TRANSFERASE 9 U/L (15-37); BLOOD UREA NITROGEN 13 mg/dL (7-18)
[2017-06-05] MEDS ORDERED: OMNIPAQUE 350 MG/ML, 100ML BOTTLE ONE (15:08)
[2017-06-05] MEDS ORDERED: METRONIDAZOLE PMX 500MG/100ML 100 ML IV ONE (16:30)
[2017-06-05] MEDS ORDERED: CIPROFLOXACIN/PMX 400MG/200ML 200 ML IV ONE (16:30)
[2017-06-05] MEDS ORDERED: CIPROFLOXACIN/PMX 400MG/200ML 200 ML ONE (16:39)
[2017-06-05] MEDS ORDERED: METRONIDAZOLE PMX 500MG/100ML 100 ML ONE (17:15)
[2017-06-05 19:10] VITALS: BP 105/79
== END 2017-06-05 19:13 | disposition home or self-care (01) ==
LOC: ED 14:21
DX: A09 Infectious gastroenteritis and colitis, unspecified (principal); K92.2 Gastrointestinal hemorrhage, unspecified; E11.9 Type 2 diabetes mellitus without complications; E83.42 Hypomagnesemia; Z90.49 Acquired absence of other specified parts of digestive tract
CPT/HCPCS: 36415; 74177; 80053; 81001; 83605; 83690; 84703; 85025; 85610; 85730; 87086; 87324; 89055; 93005; 96361; 96365; 96367; 96375; 96376; 99285; J0744; J1170; J2405; J7030; Q9967

== ENCOUNTER 2017-07-02 09:53 | Day surgery (SDC) | payer MEDICAID ==
[~2017-07-02] VITALS: Ht 175.3 cm; Wt 68.0 kg
[~2017-07-02 09:53] MED LIST changes: +COLE1TAB5 PO; +DULO30CA2 PO; +FERR325T18 PO; +FOLI-17 PO; +LACT1TAB13 PO; +LAMO25TB PO; +ZOLP10TA5 PO
[2017-07-02] MEDS ORDERED: METF500T4 PO (10:31)
[2017-07-02 10:32] VITALS: BP 122/85
[2017-07-02] MEDS ORDERED: LACTATED RINGERS 1,000 ML IV SCH (10:56)
[2017-07-02] MEDS ORDERED: POTA20TA6 PO (10:56)
[2017-07-02] MEDS ORDERED: LIDOCAINE 1%, 2ML ONE (10:58)
[2017-07-02] MEDS ORDERED: LIDOCAINE 1%, 2ML SQ PRN (11:00)
[2017-07-02 11:10] LABS: HCG UR LOT HCG7030192
[2017-07-02 11:19] LABS: HCG UR OBC PASS
[2017-07-02] MEDS ORDERED: FENTANYL PF 100 MCG/2ML ONE ×3 (13:01→16:27)
[2017-07-02] MEDS ORDERED: MIDAZOLAM 1 MG/ML, 2ML ONE (13:01)
[2017-07-02] MEDS ORDERED: PROPOFOL 10 MG/ML, 20ML ONE (13:03)
[2017-07-02] MEDS ORDERED: OXYcodone 5 MG/5 ML ORAL.SOL UDC PO PRN (15:30)
[2017-07-02] MEDS ORDERED: ACETAMINOPHEN 325 MG TABLET PO PRN (15:30)
[2017-07-02] MEDS ORDERED: HYDROmorphone 1 MG/ML, 1ML IV PRN (15:30)
[2017-07-02] MEDS ORDERED: PROMETHAZINE 25 MG/ML, 1ML IV PRN (15:30)
[2017-07-02] MEDS ORDERED: hydrALAzine 20 MG/ML, 1ML IV PRN (15:30)
[2017-07-02] MEDS ORDERED: MEPERIDINE/PF 25MG/0.5ML IVPush PRN (15:30)
[2017-07-02] MEDS ORDERED: LABETALOL 5MG/ML, 20ML IV PRN (15:30)
[2017-07-02] MEDS ORDERED: ONDANSETRON 2MG/ML, 2ML IVPush PRN (15:30)
[2017-07-02] MEDS ORDERED: KETOROLAC 30 MG/1 ML ONE (16:23)
[2017-07-02] MEDS ORDERED: OXYcodone 5 MG/5 ML ORAL.SOL UDC ONE (16:23)
[2017-07-02] MEDS: FENTANYL PF 100 MCG/2ML IV PRN ×2 (16:27→16:35)
[2017-07-02] MEDS ORDERED: HYDROmorphone 1 MG/ML, 1ML ONE (16:52)
== END 2017-07-02 18:35 ==
LOC: OUT 09:53
PROVIDERS: ATTEND Obstetrics & Gynecology Gynecologic Oncology
DX: C53.0 Malignant neoplasm of endocervix (principal); N88.9 Noninflammatory disorder of cervix uteri, unspecified; D64.9 Anemia, unspecified; E11.9 Type 2 diabetes mellitus without complications; G35 Multiple sclerosis; Z92.21 Personal history of antineoplastic chemotherapy; Z92.3 Personal history of irradiation; Z90.49 Acquired absence of other specified parts of digestive tract; Z98.890 Other specified postprocedural states; Z88.1 Allergy status to other antibiotic agents
CPT/HCPCS: 36415; 52000; 57522; 81025; 82962; 86850; 86900; 88305; J1170; J1885; J2250; J2704; J3010; J3490; J7120

== ENCOUNTER 2018-09-07 09:43 | Emergency (ER) | payer MEDICAID ==
[~2018-09-07] VITALS: Ht 175.3 cm; Wt 89.5 kg
[~2018-09-07 09:43] MED LIST changes: +ATOR40TA78 PO; +CHOL100015 PO; +GABA300C10 PO; +GLATIRAMER INJ; +INSU100I34 INJ; -LAMO25TB PO; +LAMO25TB7 PO; +LISI-170 PO; +METF500T17 PO; -METF500T4 PO; +SULF1TAB24 PO; +TIZA6CAP PO; +VANCO PO
[2018-09-07] MEDS ORDERED: ONDANSETRON 2MG/ML, 2ML ONE (10:22)
[2018-09-07] MEDS ORDERED: MORPHINE SULFATE 4 MG/ML, 1ML ONE (10:22)
[2018-09-07] MEDS ORDERED: MORPHINE SULFATE 4 MG/ML, 1ML IVPush PRN (10:30)
[2018-09-07] MEDS ORDERED: ONDANSETRON 2MG/ML, 2ML IVPush ONE (10:30)
[2018-09-07] MEDS ORDERED: SODIUM CHLORIDE FLUSH 10ML SYR IVF ONE (10:30)
[2018-09-07 10:47] LABS: ALANINE AMINOTRANSFERASE 66 U/L (12-78); ALBUMIN 3.3 g/dL (3.4-5.0); ANION GAP 11 mmol/L (5-15); CHLORIDE 111 mmol/L (98-107); CREATININE 0.75 mg/dL (0.55-1.02)
[2018-09-07 10:51] LABS: ALKALINE PHOSPHATASE 141 U/L (45-117); BILIRUBIN,TOTAL 0.3 mg/dL (0.2-1.0); TOTAL PROTEIN 7.1 g/dL (6.4-8.2)
[2018-09-07 11:53] LABS: BASOPHILS # (AUTO) 0.01 x10^3/uL (0-0.1); BASOPHILS % (AUTO) 0 % (0-1); EOSINOPHILS # (AUTO) 0.24 x10^3/uL (0-0.4); EOSINOPHILS % (AUTO) 4 % (1-7); LYMPHOCYTES # (AUTO) 1.73 x10^3/uL (1-3.4); LYMPHOCYTES % (AUTO) 28 % (22-44); MD NO; MEAN CORPUSCULAR HEMOGLOBIN 28.6 pg (27.0-34.8); MEAN CORPUSCULAR HGB CONC 33.7 g/dL (32.4-35.8); MEAN CORPUSCULAR VOLUME 85.1 fL (80-100); MONOCYTES # (AUTO) 0.34 x10^3/uL (0.2-0.8); MONOCYTES % (AUTO) 6 % (2-9); NEUTROPHILS # (AUTO) 3.86 x10^3/uL (1.8-6.8); NEUTROPHILS % (AUTO) 62 % (42-75); PLATELET COUNT 220 x10^3/uL (130-400); RED BLOOD COUNT 4.35 x10^6/uL (3.82-5.3); RED CELL DISTRIBUTION WIDTH 14.3 % (9.6-15.2)
[2018-09-07 13:31] LABS: CULTURE INDICATED? YES; MICROSCOPIC INDICATED
[2018-09-07 15:09] VITALS: BP 109/74
--- NOTE | 2018-09-07 15:10 | NUR ---
Patient/Caregiver given discharge instructions and they have confirmed that they understand the instructions. Patient ambulatory with steady gait.
== END 2018-09-07 15:11 | disposition home or self-care (01) ==
LOC: ED 10:12
DX: K92.1 Melena (principal); R10.84 Generalized abdominal pain; E11.9 Type 2 diabetes mellitus without complications; G40.909 Epilepsy, unspecified, not intractable, without status epilepticus; Z88.0 Allergy status to penicillin
CPT/HCPCS: 36415; 80053; 81001; 84703; 85025; 87077; 87086; 87186; 96374; 96375; 99283; J2405

== ENCOUNTER 2018-10-11 17:28 | Emergency (ER) | payer MEDICAID ==
[~2018-10-11] VITALS: Ht 175.3 cm; Wt 92.5 kg
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
--- NOTE | 2018-10-11 18:45 | NUR ---
PT RESTING ON GURNEY, RESPS EVEN AND UNLABORED. ICE PACK IN PLACE TO RIGHT FOOT. PT HAS NO COMPLAINT AT THIS TIME. ALL RESULTS BACK, CHART UP FOR RECHECK. AWAITING MD AND DISPO.
--- NOTE | 2018-10-11 19:22 | NUR ---
report to break GHAZALA Cam.
[2018-10-11 19:46] VITALS: BP 137/84
== END 2018-10-11 19:47 | disposition home or self-care (01) ==
LOC: ED 19:42
DX: S90.01XA Contusion of right ankle, initial encounter (principal); S90.511A Abrasion, right ankle, initial encounter; E11.9 Type 2 diabetes mellitus without complications; G40.909 Epilepsy, unspecified, not intractable, without status epilepticus; V98.8XXA Other specified transport accidents, initial encounter; Y93.89 Activity, other specified; Y92.89 Other specified places as the place of occurrence of the external cause; Y99.8 Other external cause status
CPT/HCPCS: 99283

== ENCOUNTER 2018-11-20 19:27 | Emergency (ER) | payer MEDICAID ==
[~2018-11-20] VITALS: Ht 175.3 cm; Wt 90.0 kg
--- NOTE | 2018-11-20 19:51 | NUR ---
PT S/P TONIC CLONIC SIEZURE, WITNESSED BY S/O. HE NOTICED SHE WAS STARTING TO ACT STRANGE, LOWERED HER TO GROUND AND REPORTS OF SEZIURE OF 5-6 MINUTES; EMS REPORTED IT TO BE 2-3 MINUTES. PT WAS POST ICTAL ON SCENE, NOW A&oX4 W/ HEADACHE. FSBS 500 IN FIELD, PT REPORTS BEING A DIABETIC W/ NORMAL SUGARS IN THE 200S; TAKES INSULIN ACHS AND LONG ACTING AT NIGHT. REPORTS BEING COMPLIANT WITH ALL MEDICATIONS SHE TAKES.
--- NOTE | 2018-11-20 20:11 | NUR ---
LAB AT BEDSIDE. EKG WAS DONE UPON ARRIVAL.
[2018-11-20 20:30] LABS: BASOPHILS # (AUTO) 0.01 x10^3/uL (0-0.1); BASOPHILS % (AUTO) 0 % (0-1); EOSINOPHILS # (AUTO) 0.07 x10^3/uL (0-0.4); EOSINOPHILS % (AUTO) 1 % (1-7); LYMPHOCYTES # (AUTO) 2.03 x10^3/uL (1-3.4); LYMPHOCYTES % (AUTO) 35 % (22-44); MD NO; MEAN CORPUSCULAR HGB CONC 33.7 g/dL (32.4-35.8); MEAN CORPUSCULAR VOLUME 86.1 fL (80-100); MONOCYTES # (AUTO) 0.39 x10^3/uL (0.2-0.8); MONOCYTES % (AUTO) 7 % (2-9); NEUTROPHILS # (AUTO) 3.33 x10^3/uL (1.8-6.8); NEUTROPHILS % (AUTO) 57 % (42-75); PLATELET COUNT 227 x10^3/uL (130-400); RED BLOOD COUNT 4.44 x10^6/uL (3.82-5.3); RED CELL DISTRIBUTION WIDTH 13.4 % (9.6-15.2)
[2018-11-20 20:33] LABS: ALBUMIN 3.7 g/dL (3.4-5.0); ANION GAP 11 mmol/L (5-15); CALCIUM 8.7 mg/dL (8.5-10.1); CHLORIDE 104 mmol/L (98-107)
--- NOTE | 2018-11-20 20:34 | NUR ---
UNABLE TO LOCATE SEIZURE PADS IN ED, PT'S BEDRAILS WRAPPED WITH BLANKETS INSTEAD TO PROVIDE SEIZURE PRECAUTIONS.
[2018-11-20 21:22] VITALS: BP 139/74
== END 2018-11-20 21:47 | disposition home or self-care (01) ==
LOC: ED 21:00
DX: G40.319 Generalized idiopathic epilepsy and epileptic syndromes, intractable, without status epilepticus (principal); Z90.49 Acquired absence of other specified parts of digestive tract; E11.9 Type 2 diabetes mellitus without complications
CPT/HCPCS: 36415; 80048; 82040; 85025; 93005; 99284

== ENCOUNTER 2018-11-30 13:21 | Emergency (ER) | payer MEDICAID ==
[~2018-11-30] VITALS: Ht 175.3 cm; Wt 92.3 kg
[2018-11-30] MEDS ORDERED: INSULIN SINGLE DOSE, ER SQ-INSULIN ONE (13:46)
[2018-11-30] MEDS ORDERED: SODIUM CHLORIDE FLUSH 10ML SYR IVF ONE (14:00)
[2018-11-30] MEDS ORDERED: INSULIN REGULAR 100 UNITS/ML, 3ML VIAL IVPush ONE (14:00)
[2018-11-30] MEDS ORDERED: PHEN-582 PO (14:01)
[2018-11-30] MEDS ORDERED: MESA0.372 PO (14:01)
[2018-11-30 14:03] LABS: BASOPHILS # (AUTO) 0.03 x10^3/uL (0-0.1); BASOPHILS % (AUTO) 0 % (0-1); EOSINOPHILS # (AUTO) 0.04 x10^3/uL (0-0.4); EOSINOPHILS % (AUTO) 1 % (1-7); LYMPHOCYTES # (AUTO) 1.58 x10^3/uL (1-3.4); LYMPHOCYTES % (AUTO) 25 % (22-44); MD NO; MEAN CORPUSCULAR HEMOGLOBIN 27.6 pg (27.0-34.8); MEAN CORPUSCULAR HGB CONC 32.4 g/dL (32.4-35.8); MEAN CORPUSCULAR VOLUME 85.3 fL (80-100); MEAN PLATELET VOLUME 8.9 fL (7.4-10.4); MONOCYTES # (AUTO) 0.37 x10^3/uL (0.2-0.8); MONOCYTES % (AUTO) 6 % (2-9); NEUTROPHILS # (AUTO) 4.33 x10^3/uL (1.8-6.8); NEUTROPHILS % (AUTO) 68 % (42-75); PLATELET COUNT 210 x10^3/uL (130-400); RED BLOOD COUNT 4.33 x10^6/uL (3.82-5.3); RED CELL DISTRIBUTION WIDTH 13.2 % (9.6-15.2)
[2018-11-30 14:12] LABS: ALANINE AMINOTRANSFERASE 21 U/L (12-78); ALBUMIN 3.3 g/dL (3.4-5.0); ANION GAP 12 mmol/L (5-15); CALCIUM 8.2 mg/dL (8.5-10.1); CHLORIDE 108 mmol/L (98-107); CREATININE 1.03 mg/dL (0.55-1.02)
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
[2018-11-30 14:15] LABS: ALKALINE PHOSPHATASE 146 U/L (45-117); BILIRUBIN,TOTAL 0.2 mg/dL (0.2-1.0); TOTAL PROTEIN 6.7 g/dL (6.4-8.2)
--- NOTE | 2018-11-30 14:37 | NUR ---
Patient resting on gurney. nadn. blanket offered. vs stable. BG 269. dr osborne notified of elbow and pain in the back of the head and back pain.
[2018-11-30 14:44] LABS: MICROSCOPIC NOT IND
--- NOTE | 2018-11-30 14:47 | NUR ---
report given to [place] RN
[2018-11-30 14:49] LABS: CULTURE INDICATED? NO
--- NOTE | 2018-11-30 14:51 | NUR ---
report received at bedside from GHAZALA Walker.
[2018-11-30 15:52] VITALS: BP 101/57
== END 2018-11-30 16:18 | disposition home or self-care (01) ==
LOC: ED 14:46
DX: G35 Multiple sclerosis (principal); G40.909 Epilepsy, unspecified, not intractable, without status epilepticus; E11.65 Type 2 diabetes mellitus with hyperglycemia
CPT/HCPCS: 36415; 70450; 80053; 81003; 85025; 93005; 96374; 99284; J1815

== ENCOUNTER 2019-03-04 18:08 | Emergency (ER) | payer MEDICAID ==
[~2019-03-04] VITALS: Ht 175.3 cm; Wt 83.4 kg
[~2019-03-04 18:08] MED LIST changes: +CLAR-36 PO; -CLAR500T PO; +MESA0.372 PO; +PHEN-582 PO
[2019-03-04 18:38] LABS: BASOPHILS % (AUTO) 0 % (0-1); EOSINOPHILS # (AUTO) 0.03 x10^3/uL (0-0.4); EOSINOPHILS % (AUTO) 0 % (1-7); LYMPHOCYTES # (AUTO) 2.01 x10^3/uL (1-3.4); LYMPHOCYTES % (AUTO) 30 % (22-44); MD NO; MEAN CORPUSCULAR HEMOGLOBIN 28.4 pg (27.0-34.8); MEAN CORPUSCULAR HGB CONC 32.4 g/dL (32.4-35.8); MEAN CORPUSCULAR VOLUME 87.6 fL (80-100); MEAN PLATELET VOLUME 9.3 fL (7.4-10.4); MONOCYTES # (AUTO) 0.41 x10^3/uL (0.2-0.8); MONOCYTES % (AUTO) 6 % (2-9); NEUTROPHILS # (AUTO) 4.34 x10^3/uL (1.8-6.8); NEUTROPHILS % (AUTO) 64 % (42-75); PLATELET COUNT 246 x10^3/uL (130-400); RED BLOOD COUNT 4.94 x10^6/uL (3.82-5.3); RED CELL DISTRIBUTION WIDTH 14.2 % (9.6-15.2)
[2019-03-04 18:43] LABS: ALANINE AMINOTRANSFERASE 31 U/L (12-78); ALBUMIN 3.7 g/dL (3.4-5.0); ANION GAP 11 mmol/L (5-15); CALCIUM 8.9 mg/dL (8.5-10.1); CHLORIDE 102 mmol/L (98-107)
[2019-03-04 18:45] LABS: ALKALINE PHOSPHATASE 138 U/L (45-117); BILIRUBIN,TOTAL 0.4 mg/dL (0.2-1.0)
[2019-03-04] MEDS ORDERED: POTASSIUM CHLORIDE 20 MEQ TAB.ER.PRT PO ONE (19:30)
[2019-03-04] MEDS ORDERED: SERT100T32 PO (19:45)
[2019-03-04] MEDS ORDERED: OMEP20TA62 PO (19:45)
--- NOTE | 2019-03-04 19:47 | NUR ---
PT TO ED FOR NAUSEA AND BLOODY STOOLS X4 DAYS. PT HAS HX CROHNS. PT CONNECTED TO MONITORS. VSS. AWAITING EDMD ASSESSMENT.
[2019-03-04] MEDS ORDERED: POTASSIUM CHLORIDE 20 MEQ TAB.ER.PRT ONE (19:54)
[2019-03-04] MEDS ORDERED: ONDANSETRON ODT 4 MG ONE (19:54)
[2019-03-04] MEDS ORDERED: ONDANSETRON ODT 4 MG PO ONE (20:00)
--- NOTE | 2019-03-04 20:02 | NUR ---
PT MEDICATED PER OCT. EBENEZER WILSON TO BS TO UPDATE ON POC. VSS. NO NEEDS EXPRESSED. UA COLELCTED AND SENT. PLAN TO DC AFTER UA RESULTS IF WNL.
[2019-03-04 20:03] VITALS: BP 130/91
[2019-03-04 20:15] LABS: MICROSCOPIC AUTO
[2019-03-04 20:22] LABS: CULTURE INDICATED? NO
== END 2019-03-04 21:29 | disposition home or self-care (01) ==
LOC: ED 21:05
DX: K92.1 Melena (principal); K64.8 Other hemorrhoids; K64.4 Residual hemorrhoidal skin tags; R19.7 Diarrhea, unspecified; R11.0 Nausea
CPT/HCPCS: 36415; 80053; 81001; 85025; 99284; Q0162

== ENCOUNTER 2019-09-01 05:34 | Day surgery (SDC) | payer MEDICARE ==
[2019-08-29 10:21] LABS: BASOPHILS % (AUTO) 0 % (0-1); EOSINOPHILS # (AUTO) 0.05 x10^3/uL (0-0.4); EOSINOPHILS % (AUTO) 1 % (1-7); LYMPHOCYTES # (AUTO) 1.36 x10^3/uL (1-3.4); LYMPHOCYTES % (AUTO) 29 % (22-44); MD NO; MEAN CORPUSCULAR HEMOGLOBIN 28.6 pg (27.0-34.8); MEAN CORPUSCULAR HGB CONC 32.9 g/dL (32.4-35.8); MEAN CORPUSCULAR VOLUME 87.1 fL (80-100); MEAN PLATELET VOLUME 7.9 fL (7.4-10.4); MONOCYTES % (AUTO) 8 % (2-9); NEUTROPHILS # (AUTO) 2.93 x10^3/uL (1.8-6.8); NEUTROPHILS % (AUTO) 62 % (42-75); PLATELET COUNT 227 x10^3/uL (130-400); RED BLOOD COUNT 4.73 x10^6/uL (3.82-5.3); RED CELL DISTRIBUTION WIDTH 13.3 % (9.6-15.2)
[2019-08-29 10:32] LABS: INTERNATIONAL NORMALIZED RATIO 0.89 (0.93-1.1); PROTHROMBIN TIME 9.4 Seconds (9.6-11.5)
[2019-08-29 10:47] LABS: ALBUMIN 3.8 g/dL (3.4-5.0); ANION GAP 6 mmol/L (5-15); CALCIUM 9.3 mg/dL (8.5-10.1); CHLORIDE 106 mmol/L (98-107)
[2019-08-29 10:51] LABS: ALANINE AMINOTRANSFERASE 23 U/L (12-78); ALKALINE PHOSPHATASE 118 U/L (45-117); BILIRUBIN,TOTAL 0.4 mg/dL (0.2-1.0); CREATININE 0.74 mg/dL (0.55-1.02)
[~2019-09-01] VITALS: Ht 175.3 cm; Wt 90.6 kg
[~2019-09-01 05:34] MED LIST changes: +DIME1CAP PO; +INSU100V34 SC; +INSU100V8 SQ; +OMEP20TA62 PO; +SERT100T32 PO
[2019-09-01] MEDS ORDERED: LACTATED RINGERS 1,000 ML IV SCH (06:17)
[2019-09-01 06:33] LABS: HCG UR SG 1.039 (1.003-1.030)
[2019-09-01 06:41] VITALS: BP 120/82
[2019-09-01] MEDS ORDERED: BUPIVACAINE/PF-EPI 0.25% 1:200K ONE (06:56)
[2019-09-01] MEDS ORDERED: MIDAZOLAM 1 MG/ML, 2ML ONE (07:20)
[2019-09-01] MEDS ORDERED: FENTANYL PF 250 MCG/5ML ONE (07:21)
[2019-09-01] MEDS ORDERED: PROPOFOL 10 MG/ML, 20ML ONE (07:23)
[2019-09-01] MEDS ORDERED: LIDOCAINE-MPF 2% ,5ML ONE (07:23)
[2019-09-01] MEDS ORDERED: DEXAMETHASONE 4 MG/ML, 1ML ONE ×2 (07:25→07:55)
[2019-09-01] MEDS ORDERED: SUGAMMADEX 200 MG/2 ML IVPush ONE (07:27)
[2019-09-01] MEDS ORDERED: ONDANSETRON ODT 8 MG PO PRN (07:30)
[2019-09-01] MEDS ORDERED: ONDANSETRON 2MG/ML, 2ML IV PRN (07:30)
[2019-09-01] MEDS ORDERED: MIDAZOLAM 1 MG/ML, 2ML IV PRN (07:30)
[2019-09-01] MEDS ORDERED: LABETALOL 5MG/ML, 20ML IV PRN (07:30)
[2019-09-01] MEDS ORDERED: OXYcodone 5 MG/5 ML ORAL.SOL UDC PO PRN (07:30)
[2019-09-01] MEDS ORDERED: DIAZEPAM 5 MG/ML, 2ML IVPush PRN (07:30)
[2019-09-01] MEDS ORDERED: hydrALAzine 20 MG/ML, 1ML IV PRN (07:30)
[2019-09-01] MEDS ORDERED: PROMETHAZINE 12.5 MG SUPP PR PRN (07:30)
[2019-09-01] MEDS ORDERED: EPHEDRINE 50 MG/ML, 1ML IVPush PRN (07:30)
[2019-09-01] MEDS ORDERED: ALBUTEROL SULFATE 2.5 MG/3 ML NPPB PRN (07:30)
[2019-09-01] MEDS ORDERED: PROMETHAZINE 25 MG/ML, 1ML IV PRN (07:30)
[2019-09-01] MEDS ORDERED: HYDROmorphone 2 MG/ML, 1ML IVPush PRN (07:30)
[2019-09-01] MEDS ORDERED: MEPERIDINE/PF 25MG/ML,1ML IVPush PRN (07:30)
[2019-09-01] MEDS ORDERED: ACETAMINOPHEN 325 MG TABLET PO PRN (07:30)
[2019-09-01] MEDS ORDERED: ONDANSETRON 2MG/ML, 2ML ONE ×2 (07:55)
[2019-09-01] MEDS ORDERED: ACETAMINOPHEN 650 MG/20.3 ML UDC ONE (08:30)
[2019-09-01] MEDS ORDERED: FENTANYL PF 100 MCG/2ML ONE (08:30)
[2019-09-01] MEDS ORDERED: OXYcodone 5 MG/5 ML ORAL.SOL UDC ONE (08:30)
[2019-09-01] MEDS: FENTANYL PF 100 MCG/2ML IV PRN ×3 (08:32→08:56)
== END 2019-09-01 10:55 | disposition home or self-care (01) ==
LOC: OR 05:34 → OUT 10:55
PROVIDERS: ATTEND Obstetrics & Gynecology
DX: C53.9 Malignant neoplasm of cervix uteri, unspecified (principal); K52.0 Gastroenteritis and colitis due to radiation; N95.1 Menopausal and female climacteric states; N95.2 Postmenopausal atrophic vaginitis; N76.1 Subacute and chronic vaginitis; Z90.49 Acquired absence of other specified parts of digestive tract; E11.9 Type 2 diabetes mellitus without complications; Z87.891 Personal history of nicotine dependence; Z85.118 Personal history of other malignant neoplasm of bronchus and lung; Z79.82 Long term (current) use of aspirin; Z88.1 Allergy status to other antibiotic agents; Z79.84 Long term (current) use of oral hypoglycemic drugs; Z79.899 Other long term (current) drug therapy; Z79.01 Long term (current) use of anticoagulants
CPT/HCPCS: 36415; 57106; 80053; 81025; 82962; 85025; 85610; 85730; 88305; 93005; J1100; J2250; J2405; J2704; J3010; J7120

== ENCOUNTER → 2020-03-05 | Outpatient (CLI) | payer MEDICARE, MEDICAID ==
[~2020-03-05] MED LIST changes: +CLAR-14 PO; -CLAR-36 PO; +ONDA-89 PO; -ONDA4TAB12 PO; +OXYC5CAP2 PO; +TIZA4TAB2 PO; +lisinopril PO
[2020-03-05 09:25] LABS: ALANINE AMINOTRANSFERASE 28 U/L (12-78); ALBUMIN 3.5 g/dL (3.4-5.0); ANION GAP 11 mmol/L (5-15); CALCIUM 9.5 mg/dL (8.5-10.1); CHLORIDE 105 mmol/L (98-107); CREATININE 0.93 mg/dL (0.55-1.02)
[2020-03-05 09:27] LABS: ALKALINE PHOSPHATASE 137 U/L (45-117); BILIRUBIN,TOTAL 0.4 mg/dL (0.2-1.0); TOTAL PROTEIN 7.7 g/dL (6.4-8.2)
== END | disposition home or self-care (01) ==
LOC: STAR 08:14
PROVIDERS: ATTEND Internal Medicine
DX: Z01.818 Encounter for other preprocedural examination (principal); K50.90 Crohn's disease, unspecified, without complications; R10.9 Unspecified abdominal pain; R11.0 Nausea; K92.1 Melena
CPT/HCPCS: 36415; 80053; 93005

== ENCOUNTER 2020-03-09 08:35 | Day surgery (SDC) | payer MEDICARE, MEDICAID ==
[~2020-03-09] VITALS: Ht 175.3 cm; Wt 86.4 kg
[2020-03-09] MEDS ORDERED: CHLORHEXIDINE 15 ML UDC MM STA (08:54)
[2020-03-09 08:56] VITALS: BP 123/83
[2020-03-09] MEDS ORDERED: LACTATED RINGERS 1,000 ML IV ONE (08:57)
[2020-03-09 09:23] LABS: HCG UR SG 1.042 (1.003-1.030)
[2020-03-09] MEDS ORDERED: FENTANYL PF 100 MCG/2ML ONE (09:44)
[2020-03-09] MEDS ORDERED: MIDAZOLAM 1 MG/ML, 2ML ONE (09:44)
[2020-03-09] MEDS ORDERED: PROPOFOL 50 ML ONE (09:45)
[2020-03-09] MEDS ORDERED: PROMETHAZINE 25 MG/ML, 1ML IVPush PRN (10:30)
[2020-03-09] MEDS ORDERED: ONDANSETRON 2MG/ML, 2ML IVPush PRN (10:30)
[2020-03-09] MEDS ORDERED: FENTANYL PF 100 MCG/2ML IV PRN (10:30)
== END 2020-03-09 13:35 | disposition home or self-care (01) ==
LOC: OUT 08:35
PROVIDERS: ATTEND Internal Medicine
DX: K92.1 Melena (principal); Z11.59 Encounter for screening for other viral diseases; K29.50 Unspecified chronic gastritis without bleeding; K52.89 Other specified noninfective gastroenteritis and colitis; K63.89 Other specified diseases of intestine; G40.909 Epilepsy, unspecified, not intractable, without status epilepticus; E11.9 Type 2 diabetes mellitus without complications; G35 Multiple sclerosis; F32.9 Major depressive disorder, single episode, unspecified; Z88.1 Allergy status to other antibiotic agents; Z90.49 Acquired absence of other specified parts of digestive tract; Z98.890 Other specified postprocedural states; Z87.891 Personal history of nicotine dependence; Z79.84 Long term (current) use of oral hypoglycemic drugs; Z79.899 Other long term (current) drug therapy; Z82.49 Family history of ischemic heart disease and other diseases of the circulatory system; Z80.1 Family history of malignant neoplasm of trachea, bronchus and lung; Z83.3 Family history of diabetes mellitus
CPT/HCPCS: 36415; 43239; 45380; 81025; 87635; 88305; J2250; J2704; J3010; J7120

== ENCOUNTER 2020-12-28 10:05 | Day surgery (SDC) | payer MEDICARE, MEDICAID ==
[~2020-12-28] VITALS: Ht 175.3 cm; Wt 98.7 kg
[~2020-12-28 10:05] MED LIST changes: -FOLI-17 PO; +FOLI1TAB32 PO; -LISI-424 PO; +LISI-606 PO; -OXYC-307 PO; +OXYC-380 PO; -PANT40TA5 PO; +PANT40TA6 PO; +SULF-23 PO; -SULF1TAB24 PO; -VANC1VIA3 PO; +VANC1VIA36 PO
[2020-12-28 10:55] VITALS: BP 125/82
[2020-12-28] MEDS ORDERED: METF500T17 PO (10:55)
[2020-12-28] MEDS ORDERED: AMAN100C7 PO (10:55)
[2020-12-28] MEDS ORDERED: INSU100C5 SQ-INSULIN (10:55)
[2020-12-28] MEDS ORDERED: LACTATED RINGERS 1,000 ML IV SCH (11:00)
[2020-12-28] MEDS ORDERED: CHLORHEXIDINE 15 ML UDC PO ONE (11:00)
[2020-12-28 11:14] LABS: HCG UR SG 1.044 (1.003-1.030)
[2020-12-28] MEDS ORDERED: MIDAZOLAM 1 MG/ML, 2ML ONE (11:36)
[2020-12-28 11:53] LABS: ALANINE AMINOTRANSFERASE 40 U/L (12-78); ALBUMIN 3.5 g/dL (3.4-5.0); ANION GAP 11 mmol/L (5-15); CALCIUM 8.4 mg/dL (8.5-10.1); CHLORIDE 105 mmol/L (98-107); CREATININE 0.71 mg/dL (0.55-1.02)
[2020-12-28 11:55] LABS: ALKALINE PHOSPHATASE 99 U/L (45-117); BILIRUBIN,TOTAL 0.5 mg/dL (0.2-1.0); TOTAL PROTEIN 7.1 g/dL (6.4-8.2)
[2020-12-28] MEDS ORDERED: LABETALOL 5MG/ML, 20ML IV PRN (12:30)
[2020-12-28] MEDS ORDERED: MEPERIDINE/PF 25MG/0.5ML IVPush PRN (12:30)
[2020-12-28] MEDS ORDERED: PROMETHAZINE 25 MG/ML, 1ML IV PRN (12:30)
[2020-12-28] MEDS ORDERED: ONDANSETRON 2MG/ML, 2ML IVPush PRN (12:30)
[2020-12-28] MEDS ORDERED: DIAZEPAM 5 MG/ML, 2ML IV PRN ×2 (12:30)
[2020-12-28] MEDS ORDERED: HYDROmorphone 1 MG/ML, 1ML INJ IV PRN (12:30)
[2020-12-28] MEDS ORDERED: OXYcodone 5 MG/5 ML ORAL.SOL UDC PO PRN (12:30)
[2020-12-28] MEDS ORDERED: KETOROLAC 30 MG/1 ML IV PRN (12:30)
[2020-12-28] MEDS ORDERED: FENTANYL PF 100 MCG/2ML IV PRN (12:30)
[2020-12-28] MEDS ORDERED: ALBUTEROL SULFATE 2.5 MG/3 ML NPPB PRN (12:30)
[2020-12-28] MEDS ORDERED: METOCLOPRAMIDE 5 MG/ML, 2ML IV PRN (12:30)
[2020-12-28] MEDS ORDERED: hydrALAzine 20 MG/ML, 1ML IV PRN (12:30)
[2020-12-29] MEDS ORDERED: PROPOFOL 10 MG/ML, 20ML ONE (14:45)
[2020-12-29] MEDS ORDERED: ONDANSETRON 2MG/ML, 2ML ONE (14:45)
[2020-12-29] MEDS ORDERED: SUCCINYLCHOLINE 20 MG/ML, 10ML ONE (14:45)
[2020-12-29] MEDS ORDERED: ROCURONIUM 10MG/ML,5ML ONE (14:45)
== END 2020-12-28 13:30 | disposition home or self-care (01) ==
LOC: OUT 10:05
PROVIDERS: ATTEND Internal Medicine Geriatric Medicine
DX: K29.50 Unspecified chronic gastritis without bleeding (principal); K63.3 Ulcer of intestine; K31.89 Other diseases of stomach and duodenum; E11.9 Type 2 diabetes mellitus without complications; I10 Essential (primary) hypertension; G40.909 Epilepsy, unspecified, not intractable, without status epilepticus; G35 Multiple sclerosis; Z20.822 Contact with and (suspected) exposure to COVID-19; Z88.1 Allergy status to other antibiotic agents; Z79.4 Long term (current) use of insulin; Z79.899 Other long term (current) drug therapy; Z87.891 Personal history of nicotine dependence; Z98.890 Other specified postprocedural states; Z72.89 Other problems related to lifestyle; Z85.41 Personal history of malignant neoplasm of cervix uteri
CPT/HCPCS: 43239; 45380; 80053; 81025; 82962; 87635; 88305; J1885; J2250; J7120; J2405; J2704; J0330